=== PATIENT | male | born 1960 | race Caucasian/White ===

== ENCOUNTER 2020-04-25 09:09 | Outpatient (REF) | payer MEDICAID, SELFPAY ==
--- NOTE | 2020-04-25 10:20 | XR_ITS ---
EXAMINATION: BILATERAL HAND X-RAY CLINICAL INFORMATION: Pain COMPARISON: None TECHNIQUE: 3 views of each hand FINDINGS: Right: Bone alignment is normal. No acute fracture or dislocation is seen. There is mild arthritis at the IP joints and first MCP with joint space narrowing and small osteophytes. There is question of a subchondral cyst or erosive changes of the ulnar side of the fifth metacarpal head. There is old ununited ulnar styloid fracture versus accessory ossification center. Soft tissues are unremarkable. Left: Bone alignment is normal. No fracture or dislocation is seen. There is mild arthritis at the IP joints with joint space narrowing and osteophyte formation. Soft tissues are normal. XR/XR hand RT min 3V IMPRESSION: Mild bilateral proliferative arthritis at the IP joints and right first MCP joint. Question small erosion or cyst of the ulnar side of the fifth metacarpal head. Old ununited right ulnar styloid fracture versus accessory ossification center.
--- NOTE | 2020-04-25 10:20 | XR_ITS ---
EXAMINATION: CERVICAL SPINE X-RAY CLINICAL INFORMATION: Pain COMPARISON: Previous CT of the cervical spine August 2014 TECHNIQUE: 3 views of the cervical spine FINDINGS: Bone alignment is normal. No fracture or dislocation is seen. There is degenerative spondylosis from C3-C4 to C5-C6. There is mild disc space narrowing at C5-C6. Disc spaces are otherwise normal. Prevertebral soft tissues are normal. XR/XR lumbar spine 2-3V IMPRESSION: Mild degenerative changes. EXAMINATION: Lumbar spine x-ray CLINICAL INFORMATION: Pain COMPARISON: None. TECHNIQUE: 3 views of the lumbar spine FINDINGS: Bone alignment is normal. No fracture or dislocation is seen. There is degenerative disc disease at L5-S1. There is lower lumbar spine facet arthritis. IMPRESSION: Degenerative disc disease at L5-S1 and lower lumbar spine facet arthritis.
--- NOTE | 2020-04-25 10:20 | XR_ITS ---
EXAMINATION: CERVICAL SPINE X-RAY CLINICAL INFORMATION: Pain COMPARISON: Previous CT of the cervical spine August 2014 TECHNIQUE: 3 views of the cervical spine FINDINGS: Bone alignment is normal. No fracture or dislocation is seen. There is degenerative spondylosis from C3-C4 to C5-C6. There is mild disc space narrowing at C5-C6. Disc spaces are otherwise normal. Prevertebral soft tissues are normal. XR/XR cervical spine 2V IMPRESSION: Mild degenerative changes. EXAMINATION: Lumbar spine x-ray CLINICAL INFORMATION: Pain COMPARISON: None. TECHNIQUE: 3 views of the lumbar spine FINDINGS: Bone alignment is normal. No fracture or dislocation is seen. There is degenerative disc disease at L5-S1. There is lower lumbar spine facet arthritis. IMPRESSION: Degenerative disc disease at L5-S1 and lower lumbar spine facet arthritis.
--- NOTE | 2020-04-25 10:20 | XR_ITS ---
EXAMINATION: BILATERAL HAND X-RAY CLINICAL INFORMATION: Pain COMPARISON: None TECHNIQUE: 3 views of each hand FINDINGS: Right: Bone alignment is normal. No acute fracture or dislocation is seen. There is mild arthritis at the IP joints and first MCP with joint space narrowing and small osteophytes. There is question of a subchondral cyst or erosive changes of the ulnar side of the fifth metacarpal head. There is old ununited ulnar styloid fracture versus accessory ossification center. Soft tissues are unremarkable. Left: Bone alignment is normal. No fracture or dislocation is seen. There is mild arthritis at the IP joints with joint space narrowing and osteophyte formation. Soft tissues are normal. XR/XR hand LT min 3V IMPRESSION: Mild bilateral proliferative arthritis at the IP joints and right first MCP joint. Question small erosion or cyst of the ulnar side of the fifth metacarpal head. Old ununited right ulnar styloid fracture versus accessory ossification center.
[2020-04-25 11:37] LABS: MANUAL DIFF FLAG NO
[2020-04-25 11:43] LABS: Basophils Percent Auto 0.5 % (0-2); Eosinophils Absolute Auto 0.6 X10*3/uL (0.0-0.4); Eosinophils Percent Auto 6.5 % (0-4); Hematocrit 35.8 % (42-52); Imm Gran Abs Auto 0.04 X10*3/uL (0.00-0.03); Imm Gran Pct Auto 0.5 % (0.0-0.4); Lymphocytes Absolute Auto 1.6 X10*3/uL (1.2-4.9); Lymphocytes Percent Auto 18.9 % (20-40); Mean Corpuscular HGB Conc 33.5 g/dl (31.0-36.0); Mean Corpuscular Hemoglobin 31.3 pg (27.0-33.0); Mean Corpuscular Volume 93.2 fL (80-98); Mean Platelet Volume 10.3 fL (9.4-12.4); Monocytes Absolute Auto 0.5 X10*3/uL (0.1-1.2); Monocytes Percent Auto 5.8 % (2-11); Neutrophils Absolute Auto 5.7 X10*3/uL (2.0-8.3); Neutrophils Percent Auto 67.8 % (45-73); Platelet Count 301 X10*3/uL (160-400); Red Blood Count 3.84 X10*6/uL (4.60-5.80); Red Cell Distribution Width 12.7 % (11.0-16.0); White Blood Count 8.4 X10*3/uL (4.8-10.8)
[2020-04-25 12:32] LABS: Alanine Aminotransferase 49 U/L (0-40); Albumin Level 3.7 g/dL (3.5-5.0); Alkaline Phosphatase 161 U/L (39-117); Anion Gap 13 (12-20); Aspartate Amino Transferase 43 U/L (5-37); Bilirubin Total 0.2 mg/dL (0.0-1.0); Blood Urea Nitrogen 16 mg/dL (9-16); C Reactive Protein 0.51 mg/dL (< or = 0.50); Carbon Dioxide 26 mmol/L (22-29); Chloride 106 mmol/L (96-108); Estimated Glomerular Filt Rate > 60; Glucose Random 95 mg/dL (60-115); Potassium 4.2 mmol/l (3.3-5.1); Sodium 141 mmol/L (135-145); Total Protein 7.5 g/dL (6.5-8.0)
[2020-04-25 12:41] LABS: Thyroid Stimulating Hormone 1.66 uIU/mL (0.32-4.0)
[2020-04-25 12:55] LABS: Rheumatoid Factor 211.4 IU/mL (<15.0)
[2020-04-25 13:16] LABS: Erythrocyte Sedimentation Rate 67 MM/HR (0-15)
[2020-04-26 22:53] LABS: Cyclic Citrullinated Peptide 198 UNITS
[2020-04-27 14:37] LABS: IgA 363 mg/dL (47-310); IgG 1825 mg/dL (600-1640); IgM 114 mg/dL (50-300); PES - Abn Protein Band 1 <0.2 g/dL (NONE DETECTED); Prot Elec - Albumin 3.6 g/dL (3.8-4.8); Prot Elec - Alpha1 0.4 g/dL (0.2-0.3); Prot Elec - Alpha2 0.7 g/dL (0.5-0.9); Prot Elec - Beta 1 0.5 g/dL (0.4-0.6); Prot Elec - Beta 2 0.5 g/dL (0.2-0.5); Prot Elec - Gamma 1.7 g/dL (0.8-1.7); Prot Elec - Total Protein 7.3 g/dL (6.1-8.1)
== END 2020-04-25 09:10 | disposition home or self-care (01) ==
LOC: HO.LAB 09:09
PROVIDERS: PCP Internal Medicine; Referring Provider Internal Medicine; Visit Provider Student in an Organized Health Care Education/Training Program
DX: M79.642 Pain in left hand (principal); M54.5 Low back pain; M79.602 Pain in left arm; M79.601 Pain in right arm; M54.2 Cervicalgia; M25.50 Pain in unspecified joint
CPT/HCPCS: 36415; 72040; 72100; 73130; 80053; 82784; 84155; 84165; 84443; 85025; 85652; 86140; 86200; 86334; 86431; 99202

== ENCOUNTER 2020-05-22 09:12 | Outpatient (REF) | payer MEDICAID, SELFPAY ==
[2020-05-22 10:36] LABS: HBS Num1 2.34 mIU/mL (0-7.99); HBc Num1 0.06 S/CO (0.00-0.79); Hepatitis B Core Antibody Nonreactive (Nonreactive); Hepatitis B Surface Antigen Negative (Negative); ~HepC Num1 0.12 S/CO (0.00-0.79); ~Hepatitis B Surface Antibody NONREACTIVE (Nonreactive); ~Hepatitis C Antibody Nonreactive (Nonreactive)
[2020-05-24 08:30] LABS: ~Hepatitis A Antibody IgM Nonreactive (Nonreactive)
[2020-05-24 09:48] LABS: HBsAGNum1 0.22 S/CO (0.00-0.99)
[2020-05-25 18:26] LABS: TS Negative Control Passed; TS Panel A 0; TS Panel B 2; TS Positive Control Passed; TSpotTB Negative (SeeBelow)
== END 2020-05-22 09:13 | disposition home or self-care (01) ==
LOC: HO.LAB 09:12
PROVIDERS: Visit Provider Student in an Organized Health Care Education/Training Program
DX: M25.50 Pain in unspecified joint (principal)
CPT/HCPCS: 36415; 86481; 86704; 86706; 86709; 86803; 87340

== ENCOUNTER → 2020-05-23 09:39 | Outpatient (BNVA) | payer MEDICAID, SELFPAY | PROVIDERS: PCP Internal Medicine; Visit Provider Student in an Organized Health Care Education/Training Program | DX: M05.9 Rheumatoid arthritis with rheumatoid factor, unspecified (principal); M25.50 Pain in unspecified joint | CPT/HCPCS: 99212 ==

== ENCOUNTER 2020-05-30 10:13 | Outpatient (REF) | payer MEDICAID, SELFPAY ==
[2020-05-30 11:41] LABS: Baso%MD 0.2 %; Eos%MD 7.7 %; Hematocrit 38.4 % (42-52); Hemoglobin 12.5 g/dl (14.0-18.0); IG%MD 0.3 %; Lymph%MD 23.3 %; Mean Corpuscular HGB Conc 32.6 g/dl (31.0-36.0); Mean Corpuscular Hemoglobin 30.6 pg (27.0-33.0); Mean Corpuscular Volume 93.9 fL (80-98); Mean Platelet Volume 10.2 fL (9.4-12.4); Neut%MD 60.5 %; Platelet Count 365 X10*3/uL (160-400); Red Blood Count 4.09 X10*6/uL (4.60-5.80); Red Cell Distribution Width 12.5 % (11.0-16.0)
[2020-05-30 11:49] LABS: Alanine Aminotransferase 39 U/L (0-40); Albumin Level 3.9 g/dL (3.5-5.0); Alkaline Phosphatase 200 U/L (39-117); Anion Gap 13 (12-20); Aspartate Amino Transferase 35 U/L (5-37); Bilirubin Total 0.3 mg/dL (0.0-1.0); Blood Urea Nitrogen 15 mg/dL (9-16); Calcium 9.2 mg/dL (8.4-10.2); Carbon Dioxide 28 mmol/L (22-29); Chloride 105 mmol/L (96-108); Estimated Glomerular Filt Rate > 60; Glucose Random 90 mg/dL (60-115); Potassium 4.2 mmol/L (3.3-5.1); Sodium 142 mmol/L (135-145)
[2020-05-30 13:05] LABS: Band Neutrophils Percent 2 % (3-5); Eosinophils Absolute Manual 0.5 X10*3/UL (0.0-0.8); Eosinophils Percent Manual 5 % (0-4); Lymphocytes Absolute Manual 2.3 X10*3/uL (0.6-4.8); Lymphocytes Percent Manual 25 % (20-40); Monocytes Absolute Manual 0.6 X10*3/uL (0.0-1.2); Monocytes Percent Manual 7 % (2-11); Neutrophils Absolute Manual 5.7 X10*3/uL (2.2-7.9); Neutrophils Percent Manual 61 % (45-73)
[2020-05-30 13:06] LABS: RBC Morphology NORMAL
[2020-05-30 13:08] LABS: Platelet Estimate NORMAL (NORMAL); Platelet Morphology Comment NORMAL
[2020-05-31 14:02] LABS: Beta-2 Microglobulin, Serum 4.82 mg/L (< OR = 2.51)
[2020-05-31 19:12] LABS: Kappa Light Chain, Free Serum 98.3 mg/L (3.3-19.4); Lambda Light Chain, Free Serum 46.8 mg/L (5.7-26.3)
[2020-06-01 15:01] LABS: IgA 400 mg/dL (47-310); IgG 2210 mg/dL (600-1640); IgM 127 mg/dL (50-300)
== END 2020-05-30 10:14 | disposition home or self-care (01) ==
LOC: HO.LAB 10:13
PROVIDERS: Internal Medicine Medical Oncology; PCP Internal Medicine; Visit Provider Internal Medicine
DX: D47.2 Monoclonal gammopathy (principal); Z20.822 Contact with and (suspected) exposure to COVID-19
CPT/HCPCS: 36415; 80053; 82232; 82784; 83520; 85007; 85027; 86334; C9803; U0003; U0005

== ENCOUNTER 2020-09-06 14:51 | Outpatient (REF) | payer MEDICAID, SELFPAY ==
[2020-09-06 16:54] LABS: MANUAL DIFF FLAG NO
[2020-09-06 16:55] LABS: Basophils Percent Auto 0.4 % (0-2); Eosinophils Absolute Auto 0.7 X10*3/uL (0.0-0.4); Eosinophils Percent Auto 8.7 % (0-4); Hematocrit 36.6 % (42-52); Hemoglobin 12.1 g/dl (14.0-18.0); Imm Gran Abs Auto 0.03 X10*3/uL (0.00-0.03); Imm Gran Pct Auto 0.4 % (0.0-0.4); Lymphocytes Absolute Auto 2.8 X10*3/uL (1.2-4.9); Lymphocytes Percent Auto 37.6 % (20-40); Mean Corpuscular HGB Conc 33.1 g/dl (31.0-36.0); Mean Corpuscular Hemoglobin 30.8 pg (27.0-33.0); Mean Corpuscular Volume 93.1 fL (80-98); Mean Platelet Volume 10.4 fL (9.4-12.4); Monocytes Absolute Auto 0.8 X10*3/uL (0.1-1.2); Monocytes Percent Auto 10.5 % (2-11); Neutrophils Absolute Auto 3.2 X10*3/uL (2.0-8.3); Neutrophils Percent Auto 42.4 % (45-73); Platelet Count 309 X10*3/uL (160-400); Red Blood Count 3.93 X10*6/uL (4.60-5.80); Red Cell Distribution Width 12.8 % (11.0-16.0); White Blood Count 7.5 X10*3/uL (4.8-10.8)
[2020-09-06 17:23] LABS: Alanine Aminotransferase 44 U/L (0-40); Albumin Level 3.8 g/dL (3.5-5.0); Alkaline Phosphatase 155 U/L (39-117); Anion Gap 12 (12-20); Aspartate Amino Transferase 44 U/L (5-37); Bilirubin Total 0.3 mg/dL (0.0-1.0); Blood Urea Nitrogen 19 mg/dL (9-16); C Reactive Protein 0.36 mg/dL (< or = 0.50); Calcium 8.9 mg/dL (8.4-10.2); Carbon Dioxide 24 mmol/L (22-29); Chloride 107 mmol/L (96-108); Estimated Glomerular Filt Rate 51; Glucose Random 98 mg/dL (60-115); Potassium 4.1 mmol/L (3.3-5.1); Sodium 139 mmol/L (135-145); Total Protein 8.1 g/dL (6.5-8.0)
[2020-09-06 17:49] LABS: Erythrocyte Sedimentation Rate 81 MM/HR (0-15)
== END 2020-09-06 14:52 | disposition home or self-care (01) ==
LOC: HO.LAB 14:51
PROVIDERS: PCP Internal Medicine; Visit Provider Student in an Organized Health Care Education/Training Program
DX: M05.9 Rheumatoid arthritis with rheumatoid factor, unspecified (principal); Z79.899 Other long term (current) drug therapy
CPT/HCPCS: 36415; 80053; 85025; 85652; 86140; 99212

== ENCOUNTER → 2020-12-21 11:18 | Outpatient (BNVA) | payer MEDICAID, SELFPAY | PROVIDERS: PCP Internal Medicine; Visit Provider Nurse Practitioner Family | DX: M05.9 Rheumatoid arthritis with rheumatoid factor, unspecified (principal) | CPT/HCPCS: 99212 ==

== ENCOUNTER → 2021-01-10 08:08 | Outpatient (BNVA) | payer MEDICAID, SELFPAY | PROVIDERS: PCP Internal Medicine; Visit Provider Physician Assistant | DX: S66.911D Strain of unspecified muscle, fascia and tendon at wrist and hand level, right hand, subsequent encounter (principal) | CPT/HCPCS: 99202 ==

== ENCOUNTER 2021-01-29 14:20 | Outpatient (REF) | payer MEDICAID, SELFPAY ==
--- NOTE | ~2021-01-29 | MR_ITS ---
EXAMINATION: MR WRIST WITHOUT CONTRAST, RIGHT CLINICAL INFORMATION: Strain of other specified muscles, fascia, and tendons. Patient reports chronic right wrist pain and arthritis. COMPARISON: XR right hand 04/25/2020. TECHNIQUE: MRI of the wrist was performed using routine sequences on a high-field scanner. There is some motion artifact, particularly on the coronal PD FS sequence. FINDINGS: TRIANGULAR FIBROCARTILAGE: Intact. The ulnar styloid band attaches to a mildly displaced, old, ununited avulsion fracture of the ulnar styloid. INTRINSIC LIGAMENTS: Accounting for motion artifact, there is some degenerative signal in the scapholunate ligament but no discrete full-thickness perforation is identified. The lunotriquetral ligament is grossly intact. TENDONS/MEDIAN NERVE: Intact. ARTICULAR CARTILAGE/BONE: There is patchy mild cartilage thinning in the radioscaphoid, radiolunate, scapholunate, triscaphe, and 1st CMC joints. There is a suggestion of some cartilage thinning in the pisotriquetral joint but this joint is otherwise not well evaluated. JOINT FLUID/SOFT TISSUES: There is a small pisotriquetral joint effusion. MR/MR wrist RT wo con IMPRESSION: 1. Mildly displaced, old, ununited avulsion fracture of the ulnar styloid. 2. Mild degenerative signal in the scapholunate ligament but no discrete tear. 3. Mild arthrosis in the radioscaphoid, radiolunate, scapholunate, triscaphe, and 1st CMC joints. Suspected mild arthrosis in the pisotriquetral joint with a small effusion.
== END 2021-01-29 14:21 | disposition home or self-care (01) ==
LOC: HO.MRI 14:20
PROVIDERS: PCP Internal Medicine; Visit Provider Physician Assistant
DX: S66.819A Strain of other specified muscles, fascia and tendons at wrist and hand level, unspecified hand, initial encounter (principal)
CPT/HCPCS: 73221

== ENCOUNTER 2021-01-31 09:14 | Outpatient (REF) | payer MEDICAID, SELFPAY ==
--- NOTE | ~2021-01-31 | XR_ITS ---
EXAMINATION: XR WRIST, RIGHT XR HAND, RIGHT CLINICAL INFORMATION: Pain in hand and wrist. COMPARISON: MR right breast 01/29/2021, radiographs right hand 04/25/2020 TECHNIQUE: 3 views of the right hand and 3 views of the right wrist are obtained separately. There are total of 6 views. FINDINGS: There is normal bony mineralization. There is no acute or healing fracture or dislocation or destructive process. The ulnar variance is neutral. There is an old ununited fracture involving the ulnar styloid again seen. The carpus shows no interval joint narrowing or erosive change or chondrocalcinosis. The MCP and interphalangeal joints show no interval joint narrowing or erosive change. No periostitis. XR/XR hand RT min 3V IMPRESSION: 1. Old ununited fracture ulnar styloid. No acute fracture or dislocation. 2. No focal joint narrowing or erosive changes in the hand or wrist.
--- NOTE | ~2021-01-31 | XR_ITS ---
EXAMINATION: XR WRIST, RIGHT XR HAND, RIGHT CLINICAL INFORMATION: Pain in hand and wrist. COMPARISON: MR right breast 01/29/2021, radiographs right hand 04/25/2020 TECHNIQUE: 3 views of the right hand and 3 views of the right wrist are obtained separately. There are total of 6 views. FINDINGS: There is normal bony mineralization. There is no acute or healing fracture or dislocation or destructive process. The ulnar variance is neutral. There is an old ununited fracture involving the ulnar styloid again seen. The carpus shows no interval joint narrowing or erosive change or chondrocalcinosis. The MCP and interphalangeal joints show no interval joint narrowing or erosive change. No periostitis. XR/XR wrist RT min 3V IMPRESSION: 1. Old ununited fracture ulnar styloid. No acute fracture or dislocation. 2. No focal joint narrowing or erosive changes in the hand or wrist.
== END 2021-01-31 09:15 | disposition home or self-care (01) ==
LOC: HO.HOSX 09:14
PROVIDERS: Visit Provider Orthopaedic Surgery
DX: S66.812A Strain of other specified muscles, fascia and tendons at wrist and hand level, left hand, initial encounter (principal); M25.532 Pain in left wrist
CPT/HCPCS: 73110; 73130; 99202

== ENCOUNTER → 2021-02-21 09:49 | Outpatient (BNVA) | payer MEDICAID, SELFPAY | PROVIDERS: PCP Internal Medicine; Visit Provider Orthopaedic Surgery ==

== ENCOUNTER → 2021-03-07 09:35 | Outpatient (BNVA) | payer MEDICAID, SELFPAY | PROVIDERS: PCP Internal Medicine; Visit Provider Orthopaedic Surgery | DX: M05.9 Rheumatoid arthritis with rheumatoid factor, unspecified (principal); S66.313D Strain of extensor muscle, fascia and tendon of left middle finger at wrist and hand level, subsequent encounter; S66.31 Strain of extensor muscle, fascia and tendon of other and unspecified finger at wrist and hand level; S66.317D Strain of extensor muscle, fascia and tendon of left little finger at wrist and hand level, subsequent encounter; S66.312D Strain of extensor muscle, fascia and tendon of right middle finger at wrist and hand level, subsequent encounter; M66.28 Spontaneous rupture of extensor tendons, other site | CPT/HCPCS: 99212 ==

== ENCOUNTER 2021-03-29 08:47 | Outpatient (REF) | payer MEDICAID, SELFPAY ==
[2021-03-29 10:19] LABS: MANUAL DIFF FLAG NO
[2021-03-29 10:55] LABS: Basophils Percent Auto 0.3 % (0-2); Eosinophils Absolute Auto 0.1 X10*3/uL (0.0-0.4); Eosinophils Percent Auto 1.1 % (0-4); Hematocrit 40.6 % (42.0-52.0); Hemoglobin 13.3 g/dl (14.0-18.0); Imm Gran Abs Auto 0.02 X10*3/uL (0.00-0.03); Imm Gran Pct Auto 0.3 % (0.0-0.4); Lymphocytes Percent Auto 27.4 % (20-40); Mean Corpuscular HGB Conc 32.8 g/dl (31.0-36.0); Mean Corpuscular Volume 94.6 fL (80.0-98.0); Mean Platelet Volume 10.4 fL (9.4-12.4); Monocytes Absolute Auto 0.5 X10*3/uL (0.1-1.2); Neutrophils Absolute Auto 4.7 x10*3/uL (2.0-8.3); Neutrophils Percent Auto 63.9 % (45-73); Platelet Count 327 X10*3/uL (160-400); Red Blood Count 4.29 X10*6/uL (4.60-5.80); Red Cell Distribution Width 12.7 % (11.0-16.0); White Blood Count 7.3 X10*3/uL (4.8-10.8)
[2021-03-29 11:22] LABS: Alanine Aminotransferase 41 U/L (0-40); Albumin Level 3.9 g/dL (3.5-5.0); Alkaline Phosphatase 143 U/L (39-117); Anion Gap 12 (12-20); Aspartate Amino Transferase 46 U/L (5-37); Bilirubin Total 0.5 mg/dL (0.0-1.0); Blood Urea Nitrogen 10 mg/dL (9-16); C Reactive Protein 0.41 mg/dL (< or = 0.50); Calcium 9.7 mg/dL (8.4-10.2); Carbon Dioxide 28 mmol/L (22-29); Chloride 109 mmol/L (96-108); Estimated Glomerular Filt Rate > 60; Glucose Random 110 mg/dL (60-115); Potassium 4.2 mmol/L (3.3-5.1); Sodium 145 mmol/L (135-145); Total Protein 8.3 g/dL (6.5-8.0)
[2021-03-29 11:45] LABS: Erythrocyte Sedimentation Rate 77 MM/HR (0-15)
== END 2021-03-29 08:48 | disposition home or self-care (01) ==
LOC: HO.LAB 08:47
PROVIDERS: PCP Internal Medicine; Visit Provider Nurse Practitioner Family
DX: M05.9 Rheumatoid arthritis with rheumatoid factor, unspecified (principal)
CPT/HCPCS: 36415; 80053; 85025; 85652; 86140

== ENCOUNTER 2021-04-16 13:24 | Outpatient (REF) | payer MEDICAID, SELFPAY ==
[2021-04-20 14:22] LABS: Alkaline Phosphatase Bone 12.7 mcg/L (7.6-14.9)
== END 2021-04-16 13:25 | disposition home or self-care (01) ==
LOC: HO.LAB 13:24
PROVIDERS: PCP Internal Medicine; Visit Provider Nurse Practitioner Family
DX: M05.9 Rheumatoid arthritis with rheumatoid factor, unspecified (principal); M54.50 Low back pain, unspecified; D47.2 Monoclonal gammopathy; R74.8 Abnormal levels of other serum enzymes
CPT/HCPCS: 36415; 84075; 99212

== ENCOUNTER → 2021-04-24 12:08 | Outpatient (BNVA) | payer MEDICAID, SELFPAY | PROVIDERS: PCP Internal Medicine; Visit Provider Orthopaedic Surgery | DX: Z01.818 Encounter for other preprocedural examination (principal); S66.819A Strain of other specified muscles, fascia and tendons at wrist and hand level, unspecified hand, initial encounter; M05.9 Rheumatoid arthritis with rheumatoid factor, unspecified | CPT/HCPCS: 99212 ==

== ENCOUNTER 2021-04-26 06:22 | Day surgery (SDC) | payer MEDICAID, SELFPAY ==
[2021-04-20 16:08] VITALS: BMI 28.5
--- NOTE | 2021-04-25 08:49 | P.CONAN_ITS ---
Documented by User: Joselin Ratliff NP 04/25/21 08:55 HPI - Anesthesia Eval Consult details Narrative: 60yo M for Left Hand Tendon Transfers to Thumb, Middle, Ring and Small Finger Extensor Tendon with Transfer Radial Wrist Extensor Carpi-ulnaris +ETOH abuse Enbrel for RA held preop [facility] Active Problems Active Problems: All Active Problems (Updated 01/10/21 @ 08:55 by Sarah Al PA-C) Ruptured extensor tendon of hand or wrist (Acute) Trigger finger (Acute) Seropositive rheumatoid arthritis (Acute) Monoclonal gammopathy (Acute) Polyarthralgia (Acute) Past Medical History Medical History Alcoholism with alcohol dependence Anemia Asthma Chronic back pain GERD (gastroesophageal reflux disease) Peptic ulcer Trigger finger Surgical History Surgical History No pertinent past surgical history Social History Social History Alcohol intake: former Patient Tobacco Use Status: Former Tobacco user Quit Date: 1999 Tobacco use type: Cigarette Cigarettes Per Day: 4 Years Smoked: 15 Use of substances other than those prescribed or required for medical reasons: No Are you DNR?: No Advance Directives: No Advance Directives Information Provided: Yes Advance Directives on File: No Current occupation: Right handed Meds Allergies Allergy/AdvReac Type Severity Reaction Status Date / Time No Known Allergies Allergy Verified 04/24/21 12:17 [No Known Allergies*] Home Medications Medication Instructions Recorded Confirmed Last Taken Type ascorbate calcium (vitamin C) 500 500 mg PO DAILY 04/25/20 04/20/21 Unknown History mg tablet atorvastatin 20 mg tablet 20 mg PO BEDTIME 04/25/20 04/20/21 Unknown History clonidine HCl 0.2 mg tablet 0.2 mg PO BEDTIME 04/25/20 04/20/21 Unknown History escitalopram oxalate 20 mg tablet 20 mg PO DAILY 04/25/20 04/20/21 Unknown History ferrous sulfate 325 mg (65 mg 325 mg PO DAILY 04/25/20 04/20/21 Unknown History iron) tablet gabapentin 300 mg capsule 300 mg PO BID 04/25/20 04/20/21 Unknown History multivitamin 1 tab PO DAILY 04/25/20 04/20/21 Unknown History naltrexone 50 mg tablet 50 mg PO DAILY 04/25/20 04/20/21 Unknown History omeprazole 20 mg tablet,delayed 20 mg PO DAILY 04/25/20 04/20/21 Unknown History release quetiapine 25 mg tablet 25 mg PO DAILY 04/25/20 04/20/21 Unknown History Exam Exam Date and Time: April 25, 2021 0849 Height,Weight and Vital Signs: Height 5 ft 4 in Weight 75.296 kg Pertinent Lab Results Pertinent Lab Results: Laboratory Tests 03/29/21 03/29/21 03/29/21 10:17 10:17 10:17 WBC 7.3 Hgb 13.3 L Hct 40.6 L Plt Count 327 ESR 77 H Sodium 145 Potassium 4.2 Chloride 109 H Carbon Dioxide 28 BUN 10 Creatinine 1.11 Calcium 9.7 D Total Bilirubin 0.5 AST 46 H ALT 41 H Alkaline Phosphatase 143 H C-Reactive Protein 0.41 Total Protein 8.3 H Albumin 3.9 Assessment and Plan Assessment Anesthesia Assessment: Chart Reviewed Documented by User: Jase Maki MD 04/26/21 08:18 [facility] Past Medical History Medical History Alcoholism with alcohol dependence Anemia Asthma Chronic back pain GERD (gastroesophageal reflux disease) Peptic ulcer Trigger finger Family History Family history of problems with anesthesia: No Surgical History Surgical History No pertinent past surgical history History of Problems with Anesthesia: No Social History Social History Alcohol intake: former Patient Tobacco Use Status: Former Tobacco user Quit Date: 1999 Tobacco use type: Cigarette Cigarettes Per Day: 4 Years Smoked: 15 Use of substances other than those prescribed or required for medical reasons: No Are you DNR?: No Advance Directives: No Advance Directives Information Provided: Yes Advance Directives on File: No Current occupation: Right handed Meds Allergies Allergy/AdvReac Type Severity Reaction Status Date / Time No Known Allergies Allergy Verified 04/24/21 12:17 [No Known Allergies*] Home Medications Medication Instructions Recorded Confirmed Last Taken Type ascorbate calcium (vitamin C) 500 500 mg PO DAILY 04/25/20 04/20/21 Unknown History mg tablet atorvastatin 20 mg tablet 20 mg PO BEDTIME 04/25/20 04/20/21 Unknown History clonidine HCl 0.2 mg tablet 0.2 mg PO BEDTIME 04/25/20 04/20/21 Unknown History escitalopram oxalate 20 mg tablet 20 mg PO DAILY 04/25/20 04/20/21 Unknown History ferrous sulfate 325 mg (65 mg 325 mg PO DAILY 04/25/20 04/20/21 Unknown History iron) tablet gabapentin 300 mg capsule 300 mg PO BID 04/25/20 04/20/21 Unknown History multivitamin 1 tab PO DAILY 04/25/20 04/20/21 Unknown History naltrexone 50 mg tablet 50 mg PO DAILY 04/25/20 04/20/21 Unknown History omeprazole 20 mg tablet,delayed 20 mg PO DAILY 04/25/20 04/20/21 Unknown History release quetiapine 25 mg tablet 25 mg PO DAILY 04/25/20 04/20/21 Unknown History Exam Airway Mallampati Class: III TM Dist: >3cm Neck ROM: Full Loose/Missing/Broken Teeth: Yes Assessment and Plan Assessment Anesthesia Assessment: Anesthesia Plan Discussed Final Anesthetic Review Family History of Problems with Anesthesia: No History of Problems with Anesthesia: No NPO: Yes ASA Class: III Final Preanesthetic Review: No Changes in Pt Med Stat, Meds/Allgs Chart Reviewed, Consent Obtained/Reviewed and Anes Risks/Benef Reviewed Patient Risk: Low Procedure Risk: Low Anesthetic Plan Anesthetic Plan: GA and Regional Block Disposition: Standard PACU
[2021-04-26] VITALS (9 sets, daily range): BP systolic 99–126; BP diastolic 54–64; PULSE 68–103; RESP 16–20; TEMP 36.1–36.6; O2SAT 93–98
[2021-04-26] MEDS: Lactated Ringers 1,000 ML 100 ML IVCONT (06:47)
--- NOTE | 2021-04-26 07:40 | PC.NURSE ---
regional block initiated by dr conroy at 0737 pt verbalized understanding timeout completed
[2021-04-26] MEDS: ondansetron HCL 4 MG/2 ML VIAL IVPUSH (09:53)
--- NOTE | 2021-04-26 10:03 | MHC.SHP ---
Pre-Procedural Eval Section A Date of Service: 04/26/21 The patient is an INPATIENT: No Changes since office visit: No Cold of Flu in the past 2 weeks, No New Medical Problems, No Changes in Medication and No Patient answered all questions The History & Physical has been completed within 30 days and I have reviewed it.: Yes Section B Chief Complaint: Strain of other Specified Muscles Allergies: Allergies Allergy/AdvReac Type Severity Reaction Status Date / Time No Known Allergies Allergy Verified 04/24/21 12:17 [No Known Allergies*] Plan I have reviewed the history and physical and performed a pertinent physical examination on my patient. No changes have occurred unless specified.
--- NOTE | 2021-04-26 10:03 | W.PM.OPN ---
Operative Note Operative Note Date of Service: 04/26/21 Narrative: Operative Note Narrative: Preop diagnosis: 1. Rheumatoid arthritis related ruptures of the EDC tendons to the middle ring and small fingers, the EDQ tendon and the EPL tendon Postop diagnosis: 1. No extensor tendon ruptures found 2. Possible neuromuscular disease Procedure: 1. Exploration of extensor tendons to the left hand and in the left forearm 2. Muscle biopsy of the left extensor pollicis longus muscle belly 3. Muscle biopsy of the left extensor digitorum communis muscle belly in the proximal forearm Surgeon: Dianne Palacios MD Anesthesia: General plus regional block Findings: All extensor tendons were noted to be intact from the forearm through the extensor retinaculum to the digits. They EIP muscle belly was noted to be a healthy appearing darker pink Appearing color. However, the EPL muscle belly was noted to be very pale and less contractile. evaluation of the EDC muscle bellies more proximally in the forearm showed these muscle bellies also to be unusually pale and not healthy appearing Implants: none Tourniquet time: 18 minutes minutes EBL: 5.0 ml Specimen: sample of EPL muscle belly and EDC muscle belly each sent down for neuromuscular evaluation by pathology. Drains: None Complications: None Disposition: Brought to the recovery room in stable condition Plan: Follow-up in 10-14 days for wound check, suture removal and to check pathology Indications: The patient is a 60 year old man with inability to actively extend bilateral thumbs and middle ring and small fingers With a recent diagnosis of rheumatoid arthritis. . The risks and benefits of operative treatment, including but not limited to risk of damage to blood vessels, nerves, tendons, infection, recurrence, persistent pain or numbness, incomplete resolution of preoperative symptoms, or need for further surgery were discussed with the patient and they wished to proceed with surgery. Procedure: Once consent was obtained patient was brought back to the operating suite and placed in the operating table in a supine position. A regional block was performed by the anesthesia team. Perioperative antibiotics and anesthesia was administered by the anesthesia team. A tourniquet was applied to the proximal aspect of the Left upper extremity and the limb was prepped and draped in a standard surgical fashion. The limb was elevated exsanguinated with Esmarch bandage and the tourniquet inflated to 250 mm of mercury for a total tourniquet time of 18 minutes. I 1st made a 1.5 cm gently curved incision just proximal to the left 2nd metacarpal head. The incision was made through the skin to the subcutaneous tissues. I dissected down to the level of the extensor tendons to the index finger. Both were present. I then made a longitudinal incision centered over the dorsal aspect of the right wrist extending from the 3rd CMC joint proximally to about 8 cm proximal to the wrist joint. The incision was made through the skin to the subcutaneous tissues using a 15. Blade. I carefully dissected down to the level of the extensor tendons and the extensor retinaculum. All extensor tendons were noted to be intact including all EDC tendons, the EIP tendon the EDQ tendon and the EPL tendon. I visualized the muscle bellies of both the EIP and the EPL tendons. Their difference was striking. the function in EIP muscle belly was a normal dark pink color. The EPL muscle belly, in the nonfunctioning tendon was pale and less contractile. I then made a 3 cm longitudinal incision directly over the EDC muscle belly and the proximal forearm. Incision was made through the skin to the subcutaneous tissues using a 15. Blade. I then dissected down to the forearm fascia and made a longitudinal incision in the forearm fascia using tenotomy scissors. I then was able to evaluate the muscle tissue to the EDC. Again I found this muscle tissue to be pale in appearance. At this point I spoke to our pathologist on the phone about sending specimen of muscle tissue for evaluation of neuromuscular disease. I removed an approximately 1.5 cm narrow length of muscle tissue from the EPL muscle belly. It measured only perhaps 2-3 mm in width. This was then placed on Telfa with saline to be sent for neuromuscular evaluation. I then took a specimen for biopsy of the EDC muscle measuring approximately 2 cm in length by perhaps 5 mm in width. This was again placed on a piece of Telfa with saline and sent for neuromuscular staining. At this point the tourniquet was deflated and hemostasis obtained with a brief period of local pressure and bipolar electrocautery. The wounds were copiously irrigated with normal saline. The subcutaneous layer was closed with 4-0 Vicryl suture, and the skin edges were reapproximated with 5-0 nylon suture. The wounds were infiltrated with some 1% lidocaine with epinephrine for postop pain control and a sterile dressing was applied. The patient appears to have tolerated the procedure well and with no complications. All digits were well vascularized conclusion of the case.
== END 2021-04-26 10:47 | disposition home or self-care (01) ==
PROVIDERS: PCP Internal Medicine; Visit Provider Orthopaedic Surgery
PROC: (CPT 20205; principal; 2021-04-26 07:30)
DX: M05.9 Rheumatoid arthritis with rheumatoid factor, unspecified (principal); M25.532 Pain in left wrist; M25.531 Pain in right wrist; G89.29 Other chronic pain; M54.9 Dorsalgia, unspecified; M25.432 Effusion, left wrist; M25.431 Effusion, right wrist; Z79.899 Other long term (current) drug therapy; M25.541 Pain in joints of right hand; D64.9 Anemia, unspecified; J45.909 Unspecified asthma, uncomplicated; K21.9 Gastro-esophageal reflux disease without esophagitis; K27.9 Peptic ulcer, site unspecified, unspecified as acute or chronic, without hemorrhage or perforation; F10.20 Alcohol dependence, uncomplicated; Z87.891 Personal history of nicotine dependence
CPT/HCPCS: 20205 ×2; 88300; 88305; 88313; 88319; 88348; J0690; J1100; J2250; J2405; J3010

== ENCOUNTER → 2021-05-09 12:02 | Outpatient (BNVA) | payer MEDICAID, SELFPAY | PROVIDERS: Visit Provider Orthopaedic Surgery | DX: M62.81 Muscle weakness (generalized) (principal) | CPT/HCPCS: 99212 ==

== ENCOUNTER 2021-07-11 09:19 | Outpatient (REF) | payer MEDICAID, SELFPAY ==
--- NOTE | 2021-07-11 09:22 | EMG_ITS ---
This is a 60-year-old man with bilateral upper extremity numbness with the left being slightly worse than the right. PHYSICAL EXAMINATION: He is alert and oriented with normal intellectual functions. Cranial nerves II through XII are normal. Muscle tone and strength are normal. No Tinel or Phalen sign. IMPRESSION: Rule out carpal tunnel syndrome. Nerve conduction EMG study: This study is suggestive of an early carpal tunnel syndrome on the left. There is mild delay in the right ulnar nerve across the elbow suggesting mild ulnar nerve entrapment as well. Normal EMG of the left C5-T1 innervated muscles. MD JENNIE Chen/GIANFRANCO / [id number]
== END 2021-07-11 09:20 | disposition home or self-care (01) ==
LOC: HO.NEURO 09:19
PROVIDERS: PCP Internal Medicine; Visit Provider Orthopaedic Surgery
DX: M62.81 Muscle weakness (generalized) (principal); R20.0 Anesthesia of skin
CPT/HCPCS: 95885; 95913

== ENCOUNTER → 2021-07-31 12:57 | Outpatient (BNVA) | payer MEDICAID, SELFPAY | PROVIDERS: PCP Internal Medicine; Visit Provider Nurse Practitioner Family | DX: M54.50 Low back pain, unspecified (principal); M05.9 Rheumatoid arthritis with rheumatoid factor, unspecified; D47.2 Monoclonal gammopathy | CPT/HCPCS: 99212 ==

== ENCOUNTER 2021-09-26 12:08 | Outpatient (REF) | payer MEDICAID, SELFPAY ==
[2021-09-26 12:31] LABS: MANUAL DIFF FLAG NO
[2021-09-26 13:00] LABS: Basophils Percent Auto 0.5 % (0-2); Eosinophils Absolute Auto 0.1 X10*3/uL (0.0-0.4); Eosinophils Percent Auto 1.7 % (0-4); Hematocrit 36.9 % (42.0-52.0); Hemoglobin 12.5 g/dl (14.0-18.0); Imm Gran Abs Auto 0.02 X10*3/uL (0.00-0.03); Imm Gran Pct Auto 0.3 % (0.0-0.4); Lymphocytes Absolute Auto 2.6 X10*3/uL (1.2-4.9); Mean Corpuscular HGB Conc 33.9 g/dl (31.0-36.0); Mean Corpuscular Hemoglobin 31.5 pg (27.0-33.0); Mean Corpuscular Volume 92.9 fL (80.0-98.0); Mean Platelet Volume 10.6 fL (9.4-12.4); Monocytes Absolute Auto 0.6 X10*3/uL (0.1-1.2); Monocytes Percent Auto 8.8 % (2-11); Neutrophils Absolute Auto 3.3 x10*3/uL (2.0-8.3); Neutrophils Percent Auto 49.7 % (45-73); Platelet Count 283 X10*3/uL (160-400); Red Blood Count 3.97 X10*6/uL (4.60-5.80); Red Cell Distribution Width 12.8 % (11.0-16.0); White Blood Count 6.6 X10*3/uL (4.8-10.8)
[2021-09-26 13:33] LABS: Alanine Aminotransferase 38 U/L (0-40); Albumin Level 3.9 g/dL (3.5-5.0); Alkaline Phosphatase 162 U/L (39-117); Anion Gap 9 (12-20); Aspartate Amino Transferase 36 U/L (5-37); Bilirubin Total 0.3 mg/dL (0.0-1.0); Blood Urea Nitrogen 20 mg/dL (9-16); C Reactive Protein 0.19 mg/dL (< or = 0.50); Calcium 9.7 mg/dL (8.4-10.2); Carbon Dioxide 30 mmol/L (22-29); Chloride 105 mmol/L (96-108); Estimated Glomerular Filt Rate > 60; Glucose Random 104 mg/dL (60-115); Potassium 4.8 mmol/L (3.3-5.1); Sodium 139 mmol/L (135-145); Total Protein 8.2 g/dL (6.5-8.0)
[2021-09-26 13:48] LABS: Erythrocyte Sedimentation Rate 75 MM/HR (0-15)
== END 2021-09-26 12:09 | disposition home or self-care (01) ==
LOC: HO.LAB 12:08
PROVIDERS: Nurse Practitioner Family; PCP Internal Medicine; Visit Provider Psychiatry & Neurology Neurology
DX: G72.9 Myopathy, unspecified (principal); M05.9 Rheumatoid arthritis with rheumatoid factor, unspecified
CPT/HCPCS: 36415; 80053; 82088; 82550; 85025; 85652; 86140

== ENCOUNTER → 2021-11-19 08:34 | Outpatient (BNVA) | payer MEDICAID, SELFPAY | PROVIDERS: PCP Internal Medicine; Visit Provider Nurse Practitioner Family | DX: M05.9 Rheumatoid arthritis with rheumatoid factor, unspecified (principal); M60.9 Myositis, unspecified; R21 Rash and other nonspecific skin eruption; D47.2 Monoclonal gammopathy; M54.50 Low back pain, unspecified | CPT/HCPCS: 99212 ==

== ENCOUNTER 2022-04-17 15:16 | Outpatient (REF) | payer MEDICAID, SELFPAY ==
[2022-04-17 15:30] LABS: MANUAL DIFF FLAG NO
[2022-04-17 16:10] LABS: Basophils Percent Auto 0.3 % (0-2); Eosinophils Absolute Auto 0.1 X10*3/uL (0.0-0.4); Eosinophils Percent Auto 1.1 % (0-4); Hematocrit 34.8 % (42.0-52.0); Hemoglobin 11.9 g/dl (14.0-18.0); Imm Gran Abs Auto 0.02 X10*3/uL (0.00-0.03); Imm Gran Pct Auto 0.2 % (0.0-0.4); Lymphocytes Absolute Auto 2.4 X10*3/uL (1.2-4.9); Lymphocytes Percent Auto 27.3 % (20-40); Mean Corpuscular HGB Conc 34.2 g/dl (31.0-36.0); Mean Corpuscular Hemoglobin 31.6 pg (27.0-33.0); Mean Corpuscular Volume 92.6 fL (80.0-98.0); Mean Platelet Volume 10.2 fL (9.4-12.4); Monocytes Absolute Auto 0.7 X10*3/uL (0.1-1.2); Neutrophils Absolute Auto 5.5 x10*3/uL (2.0-8.3); Neutrophils Percent Auto 63.1 % (45-73); Platelet Count 276 X10*3/uL (160-400); Red Blood Count 3.76 X10*6/uL (4.60-5.80); White Blood Count 8.7 X10*3/uL (4.8-10.8)
[2022-04-17 16:50] LABS: Erythrocyte Sedimentation Rate 75 MM/HR (0-15)
[2022-04-22 23:32] LABS: Aldolase 6.3 U/L (<=8.1)
[2022-04-23 10:44] LABS: IgA 532 mg/dL (70-320); IgG 2104 mg/dL (600-1540); IgM 207 mg/dL (50-300)
== END 2022-04-17 15:17 | disposition home or self-care (01) ==
LOC: HO.LAB 15:16
PROVIDERS: PCP Internal Medicine; Visit Provider Psychiatry & Neurology Neurology
DX: G72.9 Myopathy, unspecified (principal)
CPT/HCPCS: 36415; 82085; 82550; 82784; 85025; 85652; 86334

== ENCOUNTER → 2022-05-22 10:11 | Outpatient (BNVA) | payer MEDICAID, SELFPAY | PROVIDERS: PCP Internal Medicine; Visit Provider Nurse Practitioner Family | DX: M05.70 Rheumatoid arthritis with rheumatoid factor of unspecified site without organ or systems involvement (principal); M60.9 Myositis, unspecified; M54.50 Low back pain, unspecified; D47.2 Monoclonal gammopathy | CPT/HCPCS: 36415; 80053; 86140; 99212 ==

== ENCOUNTER 2022-05-22 11:39 | Outpatient (REF) | payer MEDICAID, SELFPAY ==
[2022-05-22 13:58] LABS: Alanine Aminotransferase 27 U/L (0-40); Alkaline Phosphatase 178 U/L (39-117); Anion Gap 15 (12-20); Aspartate Amino Transferase 25 U/L (5-37); Bilirubin Total 0.4 mg/dL (0.0-1.0); Blood Urea Nitrogen 13 mg/dL (9-16); Calcium 9.4 mg/dL (8.4-10.2); Carbon Dioxide 25 mmol/L (22-29); Chloride 105 mmol/L (96-108); Estimated Glomerular Filt Rate > 60; Glucose Random 116 mg/dL (60-115); Potassium 4.3 mmol/L (3.3-5.1); Sodium 141 mmol/L (135-145); Total Protein 7.9 g/dL (6.5-8.0)
== END 2022-05-22 11:40 | disposition home or self-care (01) ==
LOC: HO.10HDL 11:39
PROVIDERS: Visit Provider Nurse Practitioner Family
DX: M05.9 Rheumatoid arthritis with rheumatoid factor, unspecified (principal); M60.9 Myositis, unspecified; R21 Rash and other nonspecific skin eruption; D47.2 Monoclonal gammopathy; M54.50 Low back pain, unspecified
CPT/HCPCS: 36415; 80053; 86140

== ENCOUNTER 2023-03-07 11:02 | Outpatient (REF) | payer MEDICAID, SELFPAY ==
[2023-03-07 14:39] LABS: Cholesterol 196 mg/dL (<200); HDL Cholesterol 37 mg/dL (>40); LDL Cholesterol Calculated 117 mg/dL (<100); Triglycerides 214 mg/dL (<150)
== END 2023-03-07 11:03 | disposition home or self-care (01) ==
LOC: HO.HHCL 11:02
PROVIDERS: Visit Provider Internal Medicine
DX: Z00.00 Encounter for general adult medical examination without abnormal findings (principal)
CPT/HCPCS: 36415; 80061

== ENCOUNTER 2023-06-30 10:22 | Outpatient (REF) | payer MEDICAID, SELFPAY ==
[2023-06-30 11:54] LABS: MANUAL DIFF FLAG NO
[2023-06-30 12:04] LABS: Basophils Percent Auto 0.4 % (0-2); Eosinophils Absolute Auto 0.1 X10*3/uL (0.0-0.4); Eosinophils Percent Auto 0.8 % (0-4); Hematocrit 37.9 % (42.0-52.0); Hemoglobin 12.7 g/dl (14.0-18.0); Imm Gran Abs Auto 0.04 X10*3/uL (0.00-0.03); Imm Gran Pct Auto 0.4 % (0.0-0.4); Lymphocytes Absolute Auto 1.3 X10*3/uL (1.2-4.9); Lymphocytes Percent Auto 13.9 % (20-40); Mean Corpuscular HGB Conc 33.5 g/dl (31.0-36.0); Mean Corpuscular Hemoglobin 31.5 pg (27.0-33.0); Mean Platelet Volume 11.1 fL (9.4-12.4); Monocytes Absolute Auto 0.6 X10*3/uL (0.1-1.2); Neutrophils Absolute Auto 7.2 x10*3/uL (2.0-8.3); Neutrophils Percent Auto 78.5 % (45-73); Platelet Count 292 X10*3/uL (160-400); Red Blood Count 4.03 X10*6/uL (4.60-5.80); Red Cell Distribution Width 12.2 % (11.0-16.0); White Blood Count 9.2 X10*3/uL (4.8-10.8)
[2023-06-30 13:12] LABS: Alanine Aminotransferase 31 U/L (0-40); Albumin Level 3.9 g/dL (3.5-5.0); Alkaline Phosphatase 168 U/L (39-117); Anion Gap 13 (12-20); Aspartate Amino Transferase 29 U/L (5-37); Bilirubin Direct 0.2 mg/dL (0.0-0.5); Bilirubin Total 0.3 mg/dL (0.0-1.0); Blood Urea Nitrogen 10 mg/dL (9-16); Calcium 9.6 mg/dL (8.4-10.2); Carbon Dioxide 26 mmol/L (22-29); Chloride 105 mmol/L (96-108); Cholesterol 165 mg/dL (<200); Estimated Glomerular Filt Rate > 60; Glucose Random 139 mg/dL (60-115); HDL Cholesterol 34 mg/dL (>40); Iron 120 mcg/dL (45-160); LDL Cholesterol Calculated 89 mg/dL (<100); Percent Iron Saturation 58 % (15-50); Potassium 4.1 mmol/L (3.3-5.1); Sodium 140 mmol/L (135-145); Total Iron Binding Capacity 207 mcg/dL (228-428); Total Protein 8.3 g/dL (6.5-8.0); Triglycerides 212 mg/dL (<150); Unsaturated Iron Binding 87 ug/dL
[2023-07-01 04:49] LABS: HIV AB/AG Nonreactive (Nonreactive); HIV Num 1 0.06 S/CO (0.00-0.99); ~HepC Num1 0.34 S/CO (0.00-0.79); ~Hepatitis C Antibody Nonreactive (Nonreactive)
== END 2023-06-30 10:23 | disposition home or self-care (01) ==
LOC: HO.HHCL 10:22
PROVIDERS: Visit Provider Internal Medicine
DX: M05.79 Rheumatoid arthritis with rheumatoid factor of multiple sites without organ or systems involvement (principal); D64.9 Anemia, unspecified
CPT/HCPCS: 36415; 80048; 80061; 80076; 83540; 85025; 86803; 87389

== ENCOUNTER → 2023-12-03 14:54 | Outpatient (RCR) | payer MEDICAID, SELFPAY ==
[2020-05-30 09:17] VITALS: BP 127/74; PULSE 79; RESP 12; TEMP 37.2; O2SAT 99; BMI 28.2
--- NOTE | 2020-05-30 09:24 | PM.HEMONCCN ---
Subjective - Subjective Chief complaint: Consult for MGUS. Anemia. Patient: new to practice Consult date: 05/30/20 Requesting Physician: Everardo. Primary Care Provider: Patti Ritter MD Medical Summary: DIAGNOSIS: 1. MGUS. 2. ANEMIA. HPI - Consult Narrative Reason for consult: Consult for: 1. MGUS 2. Anemia. Narrative: Aries Billings is a pleasant 59 year old gentleman, who has been referred by Dr. Mcgee for MGUS. He has seropositive rheumatoid arthritis. As part of evaluation an SIEP was done. This revealed: Ig. IgA: 363. IgM: 114. A faint IgG lambda monoclonal band was seen. ROS: He denies easy fatigability. No fever nor chills. Appetite is good. He has gained weight. He complains of generalized body aches. He has pain in his arms and legs. No headache no dizziness. No chest pain or trouble breathing. He had abdominal pain the other day. It is gone now. No nausea vomiting no diarrhea. No gross blood in the stools. No urinary complaints. No focal weakness. He does feel rather depressed. Previous history: Last note from Dr. Mcgee: Patient has a history of rheumatoid arthritis. Seropositive rheumatoid arthritis (RF++ CCP++). RA: 211.Cycl Citrul Peptide Ig. X-rays of hands with possible erosions. Because he has a history of alcoholism and does have some increase in his LFTs as well as possible erosion on x-ray, will advance therapy directly to a biologic with TNF inhibitor. I am still awaiting the results of hepatitis a and TB testing. Once these tests have returned negative, I will order Enbrel for patient. He will do blood work in 2 months after starting Enbrel. Side effects of Enbrel were discussed with the patient in detail including increased risk of infection, demyelinating disease, reactivation of latent TB, possible increased risk of solid and skin tumors. Patient fully aware. Advised patient to seek medical care Stanley sudhakar if patient has an infection and advised patient to stop the medication until the infection is resolved. Family history: Denies any blood disease nor cancer in the family. Social history. He is on disability. He is not . He has 4 children. He used to smoke a pack-a-day quit more than 20 years ago. He used to drink heavily quit 3 years ago. Review of Systems - Constitutional Reports system reviewed and no additional complaints, except as documented, Reports weight gain - Eyes Reports system reviewed and no additional complaints, except as documented - ENT Reports system reviewed and no additional complaints, except as documented - Cardiovascular Reports system reviewed and no additional complaints, except as documented - Respiratory Reports no additional respiratory complaints - Gastrointestinal Reports system reviewed and no additional complaints, except as documented, Reports abdominal pain - Genitourinary Genitourinary: Reports no additional male genitourinary complaints - Musculoskeletal Reports system reviewed and no additional complaints, except as documented, Reports body aches, Reports joint pain - Integumentary/Breasts Skin/Breast: Reports no additional skin complaints - Neurologic Reports system reviewed and no additional complaints, except as documented - Psychiatric Reports system reviewed and no additional complaints, except as documented - Endocrine Reports no additional endocrine complaints - Hematologic/Lymphatic Reports system reviewed and no additional complaints, except as documented - Allergic/Immunologic Reports system reviewed and no additional complaints, except as documented Oncology Screenings - ECOG Performance Status ECOG Performance Status: 0 [facility] Medical History: Medical History (Last Reviewed 05/23/20 @ 10:05 by Yakov Mcgee MD) Alcoholism with alcohol dependence Anemia Asthma Chronic back pain GERD (gastroesophageal reflux disease) Peptic ulcer Trigger finger Functional capacity: independent ambulation Patient : No Surgical History: Surgical History (Last Reviewed 05/23/20 @ 09:46 by Nerissa Sheets CMA) No pertinent past surgical history Social History: Social History (Last Reviewed 05/23/20 @ 09:46 by Nerissa Sheets CMA) Alcohol History: Alcohol intake: former Home Medications and Allergies Home Medications Medication Instructions Recorded Confirmed Type ascorbate calcium (vitamin C) 500 500 mg PO DAILY 04/25/20 05/30/20 History mg tablet atorvastatin 20 mg tablet 20 mg PO BEDTIME 04/25/20 05/30/20 History clonidine HCl 0.2 mg tablet 0.2 mg PO BEDTIME 04/25/20 05/30/20 History escitalopram oxalate 20 mg tablet 20 mg PO DAILY 04/25/20 05/30/20 History ferrous sulfate 325 mg (65 mg 325 mg PO DAILY 04/25/20 05/30/20 History iron) tablet gabapentin 300 mg capsule 300 mg PO BID 04/25/20 05/30/20 History multivitamin 1 tab PO DAILY 04/25/20 05/30/20 History naltrexone 50 mg tablet 50 mg PO DAILY 04/25/20 05/30/20 History omeprazole 20 mg tablet,delayed 20 mg PO DAILY 04/25/20 05/30/20 History release quetiapine 25 mg tablet 25 mg PO DAILY 04/25/20 05/30/20 History Allergies Allergy/AdvReac Type Severity Reaction Status Date / Time No Known Allergies Allergy Verified 05/23/20 09:45 [No Known Allergies*] Physical Exam Vital signs: Vital Signs Temp 98.9 F 05/30/20 09:17 Pulse 79 05/30/20 09:17 Resp 12 05/30/20 09:17 BP 127/74 05/30/20 09:17 Pulse Ox 99 05/30/20 09:17 Intake & Output 05/29/20 05/30/20 05/30/20 18:59 06:59 18:59 Other: Weight 74.6 kg Weight in Grams 99209 Weight 74.6 kg - Constitutional Present: no acute distress, mild distress - Routine HEENT Exam Head: Present: normal inspection ENT: Present: mucous membranes moist - Routine Neck Exam Present: supple - Routine Respiratory Exam Present: CTAB - Routine Cardiovascular Exam Cardiovascular: Present: RRR, S1, S2 - Routine Abdominal Exam Present: normal bowel sounds, nontender - Routine Rectal Exam Patient deferred: digital exam - Routine Skin Exam Present: intact - Routine Neurological Exam Present: alert, oriented X3 - Detailed Neurological Exam: Coma Scale Eye Opening: Spontaneous (4) Verbal Response: Oriented (5) Motor Response: Obeys commands (6) Lee Coma Scale Total: 15 - Routine Psychiatric Exam Present: normal affect Assessment and Plan (1) Monoclonal gammopathy Status: Acute CBC: WBC 9, HGB 12.5, HCT 38.4, MCV 93.9, PLT 365. CMP: Lytes: WNL, BUN 15, [employer]ER 1.03, GLU 90. Romel 9.2, Alb 3.9. LFTs:<0.2/200/35/39. This is a pleasant 59-year-old gentleman with a recent diagnosis of seropositive rheumatoid arthritis. He is waiting for insurance approval to get started on Embrel. As part of the evaluation he was noted to have monoclonal gammopathy. IgG lambda band. Most likely he has MGUS. DIFFERENTIAL DIAGNOSIS: 2. Multiple myeloma: He does not fulfill the criteria. He does have mild anemia but that is likely related to ACD from his underlying rheumatological disorder. No kidney disease. No hypercalcemia. 3. Amyloidosis: This is a possibility given the lambda band. 4. A lymphoproliferative disorder: Lymphoma. PLAN: At this point the plan is to proceed with further evaluation. I will repeat SIEP: No monoclonal spike. Will check serum free light chain ratio: 2.10. Check a beta 2 microglobulin level for prognosis. Will check LDH: Normal. I will simply monitor him for now. If the levels go up significantly will proceed with further evaluation including a bone marrow exam and abdominal fat pad biopsy. He will return in 6 months for a follow-up visit. Thank you, CC: Dr. Mcgee. Dr. Ritter.
--- NOTE | 2020-05-30 10:46 | MHC.HEMONCMA ---
Patient present for monoclonal gammopathy. History reviewed and an machine greaser was used. Patient stated that he was exposed to COVID but wasn't feeling any symptoms. Patient was brought to old ED for covid testing and was advised that after getting negative results to have labs drawn.
== END | disposition home or self-care (01) ==
LOC: HO.ONC 05-30 09:12
PROVIDERS: PCP Internal Medicine; Referring Provider Internal Medicine; Visit Provider Internal Medicine Medical Oncology
DX: D47.2 Monoclonal gammopathy (principal); D64.9 Anemia, unspecified; M05.9 Rheumatoid arthritis with rheumatoid factor, unspecified
CPT/HCPCS: 99204

== ENCOUNTER 2024-10-25 11:12 | Outpatient (REF) | payer MEDICAID, SELFPAY ==
--- OUTSIDE RECORDS SUMMARY | 2024-10-25 12:22 | XMS_ITS | Encounter Summary ---
Author Organization [email or web address] Address [address] [facility] [address] [place] [address] Care Team Providers Care Pulper Name Role Phone Patti Moreno MD Primary Care Provide r Shonna Bautista RN Unavailable [phone] Reason for Visit * Reason Onset Date Comments Immunizations 10/20/2024 Encounter Details Date Type Department Care Team ([facility] st Contact Info) Description 10/20/2024 Telephone [facility] [address] [place] [address] Patti Moreno MD [address] [place], [place] [id number] Immunizations Social History Tobacco Use Types Packs/Day Years Used Date Smoking Tobacco: Never Passive Smoke Exposure: Never Smokeless Tobacco: Never Alcohol Answer Date Recorded How often do you have a drink containing alcohol ? 2 10/15/2024 How many drinks containing a lcohol do you have on a typical day when you are drinking? 2 10/15/2024 How often do you have six or more drinks on one occasion? 2 10/15/2024 Depression Answer Date Recorded Patient Health Questionnaire-9 Score 7 10/15/2024 Patient Health Questionnaire-9 Score 7 10/15/2024 Last PHQ-9: Questionnaire Data Not on file 0 10/15/2024 Housing Stability Answer Date Recorded What is your housing situation today? I have wisam siddiqi 10/15/[address] you li ve. Do you have problems with any of the following? None of the above 10/15/2024 Food Insecurity Answer Date Recorded Within the past 12 months, y ou worried that your food would run out before you got money to buy more: Never True 10/15/2024 Within the past 12 months,th e food you bought just didn't last and you didn't have enough money to get more: Never True 02/2025 Transportation Answer Date Recorded In the past 12 months, has l ack of transportation kept you from medical appts, meetings, work or from getting things needed for daily living? No 10/15/2024 Utilities Answer Date Recorded In the past 12 months, has t he [employer], gas, oil or water [employer] threatened to shut off services in your home? No 10/15/2024 Depression Answer Date Recorded Patient Health Questionnaire-2 Score 2 10/15/2024 Internet Access Answer Date Recorded Internet Access Q1 Yes 10/15/2024 Internet Access Q2 Not on file 10/15/2024 Sex and Gender Information Value Date Recorded Sex Assigned at Male 02/04/2022 10:14 AM EDT Legal Sex Male 10:14 AM EDT Gender Identity Male 02/04/2022 10:14 AM EDT Sexual Orientation Choose not to disclose 2021 10:14 AM EDT documented as of this encounter Miscellaneous Notes * Addendum Note - Eleazar Goldstein RN - 10/25/2024 11:11 AM EDTAddended by: ELEAZAR GOLDSTEIN on: 10/25/2024 11:11 AM Modules accepted: Orders * Telephone Encounter - Eleazar Goldstein RN - 10/25/2024 11:08 AM EDT Patient presented to red team FD in regards to below message. Patient reports he needs a Tspot for an adult day program. Patient denies previous positive TB screening. Patient advised BW order has been placed and patient can go to the lab to have BW drawn at his convenience M-F before 3:30pm. Patient verbalized understanding. Patient to f/u PRN. * Telephone Encounter - Eleazar Goldstein RN - 10/20/2024 10:20 AM EDT TC placed to patient [phone] in regards to below message however no answer, RN left requesting CB to red team nurses. TC placed to [phone] however received automated recording we're sorry your call did not go through . TC placed to [phone] however received automated recording we're sorry your call did not go through . Patient to f/u PRN. * Telephone Encounter - Nicolette Howard - 10/20/2024 9:12 AM EDT Tc from pt requesting TB test for a program Contact pt at [phone] Need aerial photograph interpreter documented in this encounter Plan of Treatment Upcoming Encounters Date Type Department Care Team (Late st Contact Info) Description 12/10/2024 9:00 AM EDT Office Visit [facility] [address] [place] [phone] Patti Moreno MD [address] [place] [address] Scheduled Orders Name Type Priority Associated Diagnoses Orde r Schedule T-SPOT .TB Lab Routine Encounter for screening for respiratory tuberculosis Expected: 10/25/2024 (Approximate), Expires: 10/25/2025 documented as of this encounter Visit Diagnoses Diagnosis Encounter for screening for respiratory tuberculosis documented in this encounter Additional Health Concerns Assessment Noted Time PHQ-9 Depression Total Score: 7 10/16/19 25 10:35 AM EDT documented as of this encounter Care Teams Pulper Relationship Specialty Start Date End Date Patti Moreno MD [address] [place] [address] PCP - General Family Medicine 12/25/17 Shonna Bautista RN [address] [place] [address] Pack MasterManager Terminal 10/29/23 documented as of this encounter
[2024-10-25 13:12] LABS: Hematocrit 37.1 % (42.0-52.0); Hemoglobin 12.4 g/dl (14.0-18.0); Imm Gran Abs Auto 0.04 X10*3/uL (0.00-0.03); Imm Gran Pct Auto 0.5 % (0.0-0.4); Lymphocytes Absolute Auto 1.9 X10*3/uL (1.2-4.9); MANUAL DIFF FLAG SCAN; Mean Corpuscular HGB Conc 33.4 g/dl (31.0-36.0); Mean Corpuscular Hemoglobin 31.6 pg (27.0-33.0); Mean Corpuscular Volume 94.6 fL (80.0-98.0); NRBC Abs Auto 0.000 X10*3/uL (0.0-0.012); NRBC Pct Auto 0.0 /100WBC (0.0-0.2); Platelet Count 361 X10*3/uL (160-400); Red Blood Count 3.92 X10*6/uL (4.60-5.80); SCAN SMEAR FLAG 1
[2024-10-25 13:21] LABS: Hemoglobin A1C 138.8930 umol/L; Total Hemoglobin (HGBA1C) 3252.2943 umol/L
[2024-10-25 13:47] LABS: Alanine Aminotransferase 19 U/L (0-40); Albumin Level 4.1 g/dL (3.5-5.0); Alkaline Phosphatase 131 U/L (39-117); Anion Gap 11 (12-20); Aspartate Amino Transferase 35 U/L (5-37); Blood Urea Nitrogen 13 mg/dL (9-16); Calcium 9.0 mg/dL (8.4-10.2); Carbon Dioxide 25 mmol/L (22-29); Chloride 111 mmol/L (96-108); Cholesterol 219 mg/dL (<200); Estimated Glomerular Filt Rate > 60; HDL Cholesterol 36 mg/dL (>40); Potassium 3.8 mmol/L (3.3-5.1); Sodium 143 mmol/L (135-145); Total Protein 7.8 g/dL (6.5-8.0); Triglycerides 276 mg/dL (<150)
[2024-10-25 13:59] LABS: White Blood Count 7.9 X10*3/uL (4.8-10.8)
[2024-10-26 08:23] LABS: HIV Num 1 0.05 S/CO (0.00-0.99); ~HepC Num1 0.28 S/CO (0.00-0.79); ~Hepatitis C Antibody Nonreactive (Nonreactive)
[2024-10-27 19:18] LABS: TS Negative Control Passed; TS Panel A 0; TS Panel B 0; TS Positive Control Passed; TSpotTB Negative (Negative)
== END 2024-10-25 11:13 | disposition home or self-care (01) ==
LOC: HO.HHCL 11:12
PROVIDERS: PCP Internal Medicine; Visit Provider Internal Medicine
DX: Z11.1 Encounter for screening for respiratory tuberculosis (principal); Z11.59 Encounter for screening for other viral diseases; Z11.4 Encounter for screening for human immunodeficiency virus [HIV]; M05.79 Rheumatoid arthritis with rheumatoid factor of multiple sites without organ or systems involvement
CPT/HCPCS: 36415; 80053; 80061; 82306; 83036; 84443; 85025; 86481; 86803; 87389

== ENCOUNTER 2025-03-15 12:40 | Emergency (ER) | payer MEDICAID, SELFPAY ==
--- NOTE | ~2025-03-15 | CT_ITS ---
EXAMINATION: CT CERVICAL SPINE WITHOUT CONTRAST CLINICAL INFORMATION: Pain. Headache.? Fall. COMPARISON: 09/03/2014. TECHNIQUE: Spiral CT imaging of the cervical spine performed in axial plane without contrast. Multiplanar reformatted images were constructed from the axial data set. This CT examination was performed using dose optimization techniques as appropriate, variously including the following: *Automated exposure control *Adjustment of mA and/or kV according to patient size (this includes techniques or standardized protocols for targeted exams where dose is matched to indication/reason for exam; i.e. extremities or head) *Use of iterative reconstruction technique FINDINGS: CORONAL ALIGNMENT: -There is a minimal levoconvex scoliosis, apex at C3. SAGITTAL ALIGNMENT: -Minimal straightening of the normal lordosis. No subluxations. C1-C2 AND CRANIOCERVICAL JUNCTION: -Intact and normally aligned. Very mild degenerative changes of the anterior atlantoaxial joint. VERTEBRAL BODIES AND FACETS: -There is no fracture, compression deformity, or traumatic subluxation. No suspicious bone lesion. -There is normal facet alignment bilaterally with mild multilevel degenerative hypertrophic facet change. This appears most significant at C4-5 on the left. -Mild to moderate multilevel uncinate spurring spanning C3-C7. DISCS: -Moderate disc degeneration is present spanning C3-C7, with mildly irregular endplate changes and sclerosis. There is sparing of the C2-3 and C7-T1 discs. CENTRAL CANAL: -No evidence of high-grade central canal narrowing or large disc herniation allowing for modality limitations. PREVERTEBRAL AND PARAVERTEBRAL SOFT TISSUES: -There is no prevertebral or paravertebral soft tissue swelling or edema. No abnormal fluid collection. -No mass or abnormal lymphadenopathy within the neck. The thyroid gland appears normal. LUNG APICES: -Minor scarring although clear bilaterally. No pneumothorax. CT/CT cervical spine wo IV con IMPRESSION: 1. No CT evidence of acute cervical spine fracture or injury. 2. Mild to moderate degenerative spondylosis of the cervical spine. Electronically signed by: Alex Velasquez MD 03/15/2025 02:25 PM [facility]
--- NOTE | ~2025-03-15 | CT_ITS ---
EXAMINATION: CT HEAD WITHOUT IV CONTRAST HISTORY: headache. TECHNIQUE: Unenhanced helical CT of the head was performed per standard departmental protocol. Coronal and sagittal reformats of the head were also evaluated. One or more of the following techniques was used for dose reduction: Automated exposure control, adjustment of the mA and/or kV according to patient size, use of iterative reconstruction technique. DLP: 697 mGy-cm COMPARISON: Previous head CT August 2014 FINDINGS: BRAIN: The brain parenchyma is unremarkable. There is normal mitchell/white differentiation. The ventricular system is normal in size and configuration. There is no mass effect or midline shift. No intra- or extra-axial fluid collections are identified. SINUSES: Membranous soft tissue thickening in the bilateral maxillary sinuses. Nasal septum is deviated to the left.. The mastoid air cells and middle ear cavities are well pneumatized. ORBITS: The visualized orbits are unremarkable. BONES/SOFT TISSUES: The extracranial soft tissues are unremarkable. The calvarium is intact. No suspicious lytic or sclerotic lesions. CT/CT head/brain wo IV con IMPRESSION: No acute intracranial abnormality. Membranous soft tissue thickening in the bilateral maxillary sinuses. Electronically signed by: Neris Farmer MD 03/15/2025 02:29 PM [facility]
--- OUTSIDE RECORDS SUMMARY | 2025-03-15 10:20 | XMS_ITS | Encounter Summary ---
Author Organization [employer] Address [address] [facility] [address] [place] [address] Care Team Providers Care Zipper Lining Folder Name Role Phone Patti Moreno MD Primary Care Provide r Shonna Bautista RN Unavailable [phone] Encounter Details Date Type Department Care Team (Late st Contact Info) Description 03/15/2025 10:20 AM EST Office Visit [facility] [address] [place], [place] [phone] Ion Hahn MD [address] [place] [address] Acute intractable headache, unspecified headache type (Primary Dx); Elevated blood pressure reading in office without diagnosis of hypertension Social History Tobacco Use Types Packs/Day Years Used Date Smoking Tobacco: Never Passive Smoke Exposure: Never Smokeless Tobacco: Never Tobacco Cessation:Counseling Given: Not Answered Alcohol Use Standard Drinks/Week Comments Never 0 (1 standard drink = 0.6 oz pur e alcohol) Alcohol Answer Date Recorded How often do [...] the past 12 months, has t he electric, gas, oil or water company threatened to shut off services in your home? No 10/15/2024 Depression Answer Date Recorded Patient Health Questionnaire-2 Score 2 12/10/2024 Internet Access Answer Date Recorded Internet Access Q1 Yes 10/15/2024 Internet Access Q2 Not on file 10/15/2024 Sex and Gender Information Value Date Recorded Sex Assigned at Male 02/04/2022 10:14 AM EDT Legal Sex Male 10:14 AM EDT Gender Identity Male 02/04/2022 10:14 AM EDT Sexual Orientation Choose not to disclose 2021 10:14 AM EDT documented as of this encounter Last Filed Vital Signs Vital Sign Reading Time Taken Comments Blood Pressure 147/85 03/15/2025 10:30 AM EST Pulse 77 03/15/2025 10:30 AM EST Temperature 36.4 C (97.6 F) 03/15/2025 10:30 AM EST Respiratory Rate 18 03/15/2025 10:30 AM EST Oxygen Saturation - - Inhaled Oxygen Concentration - - Weight 69.9 kg (154 lb 3.2 oz) 03/15/2025 10:30 AM EST Height 162.6 cm (5' 4 ) 03/15/2025 10:30 AM EST Body Mass Index 26.47 03/15/2025 10:30 AM EST documented in this encounter Progress Notes * Ion Hahn MD - 03/15/2025 10:20 AM EST Subjective Patient ID: Aries Billings is a 64 y.o. male. Pbx Technician: Johnson HPI Left parietal headache woke Aries at 4 AM last night, unable to describe headache. No recent illness, fever, trauma n/v/d, photosensitivity. Denies prior h/o similar headache. No family h/o migraines. Lives with a friend. Not employed. Quit smoking years ago. Occasional EtOH. 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 Postherpetic neuralgia 08/15/2022 Rheumatoid arthritis involving multiple sites with positive rheumatoid factor ([facility] ([facility]) 08/15/2022 Seropositive rheumatoid arthritis ([facility]) ([facility]) 08/15/2022 Psychosis ([facility]) ([facility]) 04/15/2022 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 Trigger finger of both hands 02/19/2017 Alcohol dependence ([facility]) 02/03/2017 Anemia 02/03/2017 Chronic back pain 02/03/2017 Gastroesophageal reflux disease 02/03/2017 Mild intermittent asthma 02/03/2017 Peptic ulcer 02/03/2017 Seasonal allergic rhinitis 02/03/2017 Mood disorder ([facility]) 02/03/2017 The following portions of the chart were reviewed this encounter and updated as appropriate: Tobacco Allergies Meds Problems Med Hx Surg Hx Fam Hx Review of Systems Constitutional: Negative for fever. Respiratory: Negative for shortness of breath. Cardiovascular: Negative for chest pain. Gastrointestinal: Negative for abdominal pain. Skin: Negative for rash. Neurological: Positive for headaches. Objective Physical Exam Constitutional: Appearance: Normal appearance. HENT: Right Ear: Tympanic membrane, ear canal and external ear normal. Left Ear: Tympanic membrane, ear canal and external ear normal. Nose: Nose normal. Mouth/Throat: Mouth: Mucous membranes are moist. Pharynx: Oropharynx is clear. Eyes: Conjunctiva/sclera: Conjunctivae normal. Pupils: Pupils are equal, round, and reactive to light. Cardiovascular: Rate and Rhythm: Normal rate and regular rhythm. Heart sounds: No murmur heard. Pulmonary: Effort: Pulmonary effort is normal. Breath sounds: Normal breath sounds. Musculoskeletal: General: Normal range of motion. Cervical back: No tenderness. Skin: Findings: No rash. Neurological: Mental Status: He is alert. Cranial Nerves: Cranial nerves 2-12 are intact. Sensory: Sensation is intact. Motor: Motor function is intact. Gait: Gait is intact. Psychiatric: Mood and Affect: Mood normal. Behavior: Behavior normal. Procedures Assessment/Plan Diagnoses and all orders for this visit: Acute intractable headache, unspecified headache type Discussed options with patient such as outpatient workup versus going to ED now. He prefers to go to the ED. Elevated blood pressure reading in office without diagnosis of hypertension Prescribed home BP monitor. Reviewed BP parameters, given written BP log that includes BP parameters, to keep daily. Call if BP readings are elevated. Other orders - Blood Pressure kit; 1 each 2 times daily. documented in this encounter Plan of Treatment Upcoming Encounters Date Type Department Care Team (Late st Contact Info) Description 04/21/2025 10:45 AM EST Office Visit [facility] [address] [place] [address] Patti Moreno MD [address] [place] [address] 07/06/2025 9:00 AM EDT Office Visit [facility] [address] [place] [address] Charmaine Clark, OD [address] [place] [address] documented as of this encounter Visit Diagnoses Diagnosis Acute intractable headache, unspecified headache type- Primary Elevated blood pressure reading in office without diagnosis of hypertension documented in this encounter Additional Health Concerns Assessment Noted Time PHQ-9 Depression Total Score: 7 10/16/19 25 10:35 AM EDT documented as of this encounter Care Teams Zipper Lining Folder Relationship Specialty Start Date End Date Patti Moreno MD [address] [place] [address] [place] [address] PCP - General Family Medicine 12/25/17 Shonna Bautista RN [address] [place] [address] Automotive Quality ManagerHuman Performance Consultant 10/29/23 documented as of this encounter
[2025-03-15 12:58] VITALS: BP 132/81; PULSE 75; RESP 16; TEMP 36.3; O2SAT 97; BMI 26.3
--- NOTE | 2025-03-15 13:06 | ED.GENADULT ---
HPI - General Adult General Chief complaint: Headache Stated complaint: headache Time Seen by Provider: 03/15/25 15:44 Source: patient Mode of arrival: ambulatory Limitations: no limitations History of Present Illness ED Provider: Morgan Mccracken [facility] narrative: 64-year-old male presents to the ED for posterior neck pain with headache without any trauma dina down bilateral upper extremities. Patient denies any chest pain or shortness of breath. Patient denies any slurred speech, facial droop or paralysis of extremities. Patient denies any photophobia, nausea, vomiting, fever, or chills. Related Data Home Medications ?Medication ?Instructions ?Recorded ?Confirmed atorvastatin 20 mg tablet 20 mg PO BEDTIME 04/25/20 07/31/21 clonidine HCl 0.2 mg tablet 0.2 mg PO BEDTIME 04/25/20 07/31/21 escitalopram oxalate 20 mg tablet 20 mg PO DAILY 04/25/20 07/31/21 ferrous sulfate 325 mg (65 mg 325 mg PO DAILY 04/25/20 07/31/21 iron) tablet gabapentin 300 mg capsule 300 mg PO BID 04/25/20 07/31/21 multivitamin 1 tab PO DAILY 04/25/20 07/31/21 naltrexone 50 mg tablet 50 mg PO DAILY 04/25/20 07/31/21 omeprazole 20 mg tablet,delayed 20 mg PO DAILY 04/25/20 07/31/21 release quetiapine 25 mg tablet 25 mg PO DAILY 04/25/20 07/31/21 Previous Rx's ?Medication ?Instructions ?Recorded ibuprofen 600 mg tablet 600 mg PO Q8H PRN pain #20 tabs 04/26/21 naproxen 500 mg tablet 500 mg PO BID PRN pain #14 tabs 03/15/25 prednisone 20 mg tablet 40 mg (2 x 20 mg) PO DAILY 5 days 03/15/25 #10 tabs Allergies Allergy/AdvReac Type Severity Reaction Status Date / Time No Known Allergies (No Known Allergy Verified 03/15/25 13:03 Allergies*) Review of Systems Review of Systems: neck pain Yes all other systems are reviewed and are negative PMFSH Past Medical History Medical History Alcoholism with alcohol dependence Anemia Asthma Chronic back pain GERD (gastroesophageal reflux disease) Peptic ulcer Trigger finger Surgical History H/O hand surgery Social History Social History Alcohol intake: former Patient Tobacco Use Status: Former Tobacco user Tobacco use type: Cigarette Cigarettes Per Day: 4 Years Smoked: 15 Advance Directives: No Advance Directives Information Provided: No Do you have a plan to hurt others: No Plan Current occupation: Right handed Physical Exam ED Vital Signs: Vital Signs - 24 hr 03/15/25 12:58 Temperature 97.3 F Pulse Rate 75 Respiratory Rate 16 Blood Pressure 132/81 Pulse Oximetry 97 Oxygen Delivery Method Room Air BMI result Body Mass Index 26.3 Const Orientation/consciousness: patient oriented x3 HENMT Head: Yes normal to inspection, Yes No palpable skull fracture present, Yes normocephalic and Yes atraumatic Eyes General: appearance normal, both eyes and all related structures Neck Neck: Yes normal visual inspection, Yes full ROM, Yes no lymphadenopathy, Yes no meningeal signs, Yes trachea midline, Yes supple, No anterior neck swelling and Yes tender (posterior cervical) Chest Chest palpation & inspection: normal inspection of the chest and normal palpation of entire chest wall Resp Effort & Inspection: normal respiratory effort and able to speak in complete sentences Auscultation: clear to auscultation bilaterally Cardio Jugular venous distension: no JVD Heart sounds: S1 normal heart sound present and S2 normal heart sound present GI Inspection: Yes normal to inspection Palpation (GI): Soft to palpation, not firm, nontender, no guarding and not rigid General: Yes no CVA tenderness Back/Spine/Pelvis Back: no CVA tenderness and No back tenderness Skin General skin exam: no rashes or lesions noted, elasticity normal and turgor normal Neuro General: patient oriented x3, gait normal, tone normal, moves all extremities, Normal light touch and pain sensation, no meningeal signs, no focal motor deficits, CN's II-XI intact bilaterally and normal sensation to monofilament Extrem General: Yes normal to inspection, Yes full ROM and Yes capillary refill normal Psych Appearance: grossly normal and well kempt Course Course Course Narrative: RME: 64 year male presents to ED left-sided headache radiating to neck since last night without nausea vomiting dizziness. Medical Decision Making Medical Decision Making [facility] Narrative: RME: 64-year-old male presents to ED for cervical spine pain with referred pain going down bilateral upper extremities. Patient denies any trauma. EKG nondiagnostic negative STEMI. Two troponins negative. Head CT scan normal. Cervical spine shows arthritis. Not suspecting meningitis, stroke, encephalitis, cartoid/vertebral dissection, VA, PE, brain aneursym, or any other life threatening etiology. Patient explained worrisome signs informed return to the ED immediately Differential Diagnosis Differential Diagnoses: The differential diagnosis associated with the presentation includes (VA, cervical radiculopathy, brain bleed) Admission/Observation Consideration of admission/observation: Escalation of care including admission/observation considered Lab Data MDM Lab Attestation statement: I reviewed the patient's lab results. 03/15/25 13:18 03/15/25 13:18 Labs: Lab Results 03/15/25 03/15/25 Range/Units 13:18 14:56 WBC 7.4 (4.8-10.8) X10*3/uL RBC 3.79 L (4.60-5.80) X10*6/uL Hgb 11.8 L (14.0-18.0) g/dl Hct 35.3 L (42.0-52.0) % MCV 93.1 (80.0-98.0) fL MCH 31.1 (27.0-33.0) pg MCHC 33.4 (31.0-36.0) g/dl RDW 13.1 (11.0-16.0) % Plt Count 323 (160-400) X10*3/uL MPV 10.3 (9.4-12.4) fL Immature Gran % (Auto) 0.3 (0.0-0.4) % Neut % (Auto) 56.0 (45-73) % Lymph % (Auto) 32.1 (20-40) % Piute % (Auto) 8.2 (2-11) % Eos % (Auto) 2.7 (0-4) % Baso % (Auto) 0.7 (0-2) % Lymph # (Auto) 2.4 (1.2-4.9) X10*3/uL Piute # (Auto) 0.6 (0.1-1.2) X10*3/uL Eos # (Auto) 0.2 (0.0-0.4) X10*3/uL Baso # (Auto) 0.1 (0.0-0.2) X10*3/uL Abs Immat Gran (auto) 0.02 (0.00-0.03) X10*3/uL Absolute Neuts (auto) 4.2 (2.0-8.3) x10*3/uL Absolute Nucleated RBC 0.000 (0.0-0.012) X10*3/uL Nucleated RBC % (auto) 0.0 (0.0-0.2) /100WBC PT 11.2 (11.2-13.5) SEC INR 0.9 (0.9-1.1) APTT 28.1 (26.7-34.1) SEC Sodium 137 (135-145) mmol/L Potassium 4.5 (3.3-5.1) mmol/L Chloride 106 (96-108) mmol/L Carbon Dioxide 27 (22-29) mmol/L Anion Gap 9 L (12-20) BUN 20 H (9-16) mg/dL Creatinine 1.19 (0.5-1.4) mg/dL Estim Creat Clear Calc 52.5 Estimated GFR > 60 Random Glucose 110 (60-115) mg/dL Calcium 9.6 D (8.4-10.2) mg/dL Total Bilirubin 0.2 (0.0-1.0) mg/dL AST 36 (5-37) U/L ALT 26 (0-40) U/L Alkaline Phosphatase 139 H (39-117) U/L Troponin I High Sens < 2.7 < 2.7 (<3.5-35.0) ng/L Total Protein 8.1 H (6.5-8.0) g/dL Albumin 4.3 (3.5-5.0) g/dL Independent Interpretation I performed an independent interpretation of an: EKG (non diagnositc) and CT Scan Radiology Impression Discussion of test interpretation with radiology: I have reviewed the radiologist's reading. Prescription Management I considered prescription management with: Pain Medication Discharge Plan Discharge Clinical Impression: Cervical radiculopathy Patient Disposition: Home, Self-Care Instructions: Cervical Radiculopathy (ED) Additional Instructions: You will need follow-up with primary care provider and spinal surgeon. Return to the ED immediately for worsening pain, numbness/paralysis of upper extremities, chest pain, shortness of breath, facial droop, headache, nausea, vomiting, loss of vision, or any other concerning symptoms. [address] [address] [address] Scan Report Signed Patient: Aries Billings MR#: [id number] : 1960 Acct:[id number] Age/Sex: 64 / M ADM Date: 03/15/25 Loc: HO.ED Attending Dr: Ordering Physician: Morgan Mccracken Date of Service: 03/15/25 Procedure(s): CT cervical spine wo IV con Accession Number(s): [id number] cc: Morgan Mccracken; Patti Moreno MD~ Report Number: [id number]: Total DLP = 374.52 mGy-cm Reason for Exam: pain EXAMINATION: CT CERVICAL SPINE WITHOUT CONTRAST CLINICAL INFORMATION: Pain. Headache.? Fall. COMPARISON: 09/03/2014. TECHNIQUE: Spiral CT imaging of the cervical spine performed in axial plane without contrast. Multiplanar reformatted images were constructed from the axial data set. This CT examination was performed using dose optimization techniques as appropriate, variously including the following: *Automated exposure control *Adjustment of mA and/or kV according to patient size (this includes techniques or standardized protocols for targeted exams where dose is matched to indication/reason for exam; i.e. extremities or head) *Use of iterative reconstruction technique FINDINGS: CORONAL ALIGNMENT: -There is a minimal levoconvex scoliosis, apex at C3. SAGITTAL ALIGNMENT: -Minimal straightening of the normal lordosis. No subluxations. C1-C2 AND CRANIOCERVICAL JUNCTION: -Intact and normally aligned. Very mild degenerative changes of the anterior atlantoaxial joint. VERTEBRAL BODIES AND FACETS: -There is no fracture, compression deformity, or traumatic subluxation. No suspicious bone lesion. -There is normal facet alignment bilaterally with mild multilevel degenerative hypertrophic facet change. This appears most significant at C4-5 on the left. -Mild to moderate multilevel uncinate spurring spanning C3-C7. DISCS: -Moderate disc degeneration is present spanning C3-C7, with mildly irregular endplate changes and sclerosis. There is sparing of the C2-3 and C7-T1 discs. CENTRAL CANAL: -No evidence of high-grade central canal narrowing or large disc herniation allowing for modality limitations. PREVERTEBRAL AND PARAVERTEBRAL SOFT TISSUES: -There is no prevertebral or paravertebral soft tissue swelling or edema. No abnormal fluid collection. -No mass or abnormal lymphadenopathy within the neck. The thyroid gland appears normal. LUNG APICES: -Minor scarring although clear bilaterally. No pneumothorax. CT/CT cervical spine wo IV con IMPRESSION: 1. No CT evidence of acute cervical spine fracture or injury. 2. Mild to moderate degenerative spondylosis of the cervical spine. Electronically signed by: Alex Velasquez MD 03/15/2025 02:25 PM [facility] Prescriptions: New prednisone 20 mg tablet 40 mg PO DAILY 5 Days Qty: 10 0RF naproxen 500 mg tablet 500 mg PO BID PRN (Reason: pain) Qty: 14 0RF No Action ibuprofen 600 mg tablet 600 mg PO Q8H PRN (Reason: pain) Qty: 20 0RF omeprazole 20 mg tablet,delayed release (DR/EC) 20 mg PO DAILY clonidine HCl 0.2 mg tablet 0.2 mg PO BEDTIME escitalopram oxalate 20 mg tablet 20 mg PO DAILY ferrous sulfate 325 mg (65 mg iron) tablet 325 mg PO DAILY gabapentin 300 mg capsule 300 mg PO BID multivitamin Tablet 1 tab PO DAILY naltrexone 50 mg tablet 50 mg PO DAILY atorvastatin 20 mg tablet 20 mg PO BEDTIME quetiapine 25 mg tablet 25 mg PO DAILY Referrals: Patti Moreno MD [Primary Care Provider, Internal Medicine] - 2 days Referral Note: Cervical radiculopathy Clinical Impression: Cervical radiculopathy Ryan Guajardo MD, PhD [Physician, Neuro Spine] - 2 days Referral Note: Cervical radiculopathy Clinical Impression: Cervical radiculopathy Interventions: ED Discharge Assessment Last Done: 03/15/25 17:25 Discharge Date/Time: 03/15/25 17:25 Print Language: Liberian
--- NOTE | 2025-03-15 13:07 | ECG_ITS ---
Test Reason : NECK PAIN Blood Pressure : */* mmHG Vent. Rate : 74 BPM Atrial Rate : 74 BPM P-R Int : 150 ms QRS Dur : 62 ms QT Int : 408 ms P-R-T Axes : 50 12 43 degrees QTcB Int : 452 ms Normal sinus rhythm Normal ECG When compared with ECG of 22-Dec-2014 16:20, No significant change was found Referred By: Morgan Mccracken Electronically Signed By: KEISHA ALSTON MD
[2025-03-15 13:29] LABS: MANUAL DIFF FLAG NO
[2025-03-15 13:30] LABS: Hematocrit 35.3 % (42.0-52.0); Hemoglobin 11.8 g/dl (14.0-18.0); Imm Gran Abs Auto 0.02 X10*3/uL (0.00-0.03); Imm Gran Pct Auto 0.3 % (0.0-0.4); Lymphocytes Absolute Auto 2.4 X10*3/uL (1.2-4.9); Mean Corpuscular HGB Conc 33.4 g/dl (31.0-36.0); Mean Corpuscular Hemoglobin 31.1 pg (27.0-33.0); Mean Corpuscular Volume 93.1 fL (80.0-98.0); NRBC Abs Auto 0.000 X10*3/uL (0.0-0.012); NRBC Pct Auto 0.0 /100WBC (0.0-0.2); Platelet Count 323 X10*3/uL (160-400); Red Blood Count 3.79 X10*6/uL (4.60-5.80); White Blood Count 7.4 X10*3/uL (4.8-10.8)
[2025-03-15 13:42] LABS: INTERNATIONAL NORM RATIO 0.9 (0.9-1.1); Prothrombin Time 11.2 SEC (11.2-13.5)
[2025-03-15 13:45] LABS: Partial Thromboplastin Time 28.1 SEC (26.7-34.1)
[2025-03-15 13:49] LABS: Alanine Aminotransferase 26 U/L (0-40); Albumin Level 4.3 g/dL (3.5-5.0); Alkaline Phosphatase 139 U/L (39-117); Anion Gap 9 (12-20); Aspartate Amino Transferase 36 U/L (5-37); Blood Urea Nitrogen 20 mg/dL (9-16); Calcium 9.6 mg/dL (8.4-10.2); Carbon Dioxide 27 mmol/L (22-29); Chloride 106 mmol/L (96-108); Creatinine Clr Calc Pharmacy 52.5; Estimated Glomerular Filt Rate > 60; Potassium 4.5 mmol/L (3.3-5.1); Sodium 137 mmol/L (135-145); Total Protein 8.1 g/dL (6.5-8.0)
[2025-03-15 13:59] LABS: Troponin-I High Sensitivity < 2.7 ng/L (<3.5-35.0)
[2025-03-15 15:28] LABS: Troponin-I High Sensitivity < 2.7 ng/L (<3.5-35.0)
[2025-03-15 17:25] VITALS: BP 132/81; PULSE 75; RESP 16; TEMP 36.3; O2SAT 97
--- OUTSIDE RECORDS SUMMARY | 2025-03-15 22:59 | XMS_ITS | Encounter Summary ---
Author Organization [employer] Address [address] [facility] [address]t [place] [address] Care Team Providers Care Care Provider Name Role Phone Patti Moreno MD Primary Care Provide r Shonna Bautista RN Unavailable [phone] Reason for Visit * Reason Comments Med Refill Encounter Details Date Type Department Care Team (Late st Contact Info) Description 11/10/2024 Refill [facility] MEDICINE [address] [place], [place] [phone] Patti Moreno MD [address] [place], [place] [phone] Mild intermittent asthma with acute exacerbation Social History Tobacco Use Types Packs/Day Years [...] the past 12 months, has t he [employer], gas, oil or water company threatened to [...] AM EDT documented as of this encounter Plan of Treatment Upcoming Encounters Date Type Department Care Team (Late st Contact Info) Description 04/21/2025 10:45 AM EST Office Visit [facility] MEDICINE [address] [place] [address] Patti Moreno MD [address] [place] [address] 07/06/2025 9:00 AM EDT Office Visit [facility] OPTOMETRY [address] [place] [address] Eduardo, Charmaine, OD [address] [place] [address] documented as of this encounter Visit Diagnoses Diagnosis Mild intermittent asthma with acute exacerbation documented in this encounter Additional Health Concerns Assessment Noted Time PHQ-9 Depression Total Score: 7 10/16/19 25 10:35 AM EDT documented as of this encounter Care Teams Care Provider Relationship Specialty Start Date End Date Patti Moreno MD [address] [place] [phone] PCP - General Family Medicine 12/25/17 Shonna Bautista RN [address] [place] [phone] Trim Setter HelperBulking Machine Operator 10/29/23 documented as of this encounter
--- OUTSIDE RECORDS SUMMARY | 2025-03-15 23:00 | XMS_ITS | Encounter Summary ---
Author Organization [employer] Address [address] [facility] [address] 7[address] [place] [address] Care Team Providers Care Animal Care Taker Name Role Phone Patti Moreno MD Primary Care Provide r Shonna Bautista RN Unavailable [phone] Reason for Visit * Reason Onset Date Comments Care Management 09/10/2023 [id number] revie w Encounter Details Date Type Department Care Team ([facility] st Contact Info) Description 09/10/2023 Telephone [facility] MEDICINE [address] [place], [place] [phone] Gia Samano RN Care Management ([id number] review) Social History Tobacco Use Types Packs/Day Years Used Date Smoking Tobacco: Never Passive Smoke Exposure: Never Smokeless Tobacco: Never Depression Answer Date Recorded Patient Health Questionnaire-9 Score 0 06/24/2023 Patient Health Questionnaire-9 Score 0 06/24/2023 Last PHQ-9: Questionnaire Data Not on file 0 06/24/2023 Housing Stability Answer Date Recorded What is your housing situation today? I have wisam siddiqi 06/19/[address] you li ve. Do you have problems with any of the following? None of the above 06/19/2023 Food Insecurity Answer Date Recorded Within the past 12 months, y ou worried that your food would run out before you got money to buy more: Never True 06/19/2023 Within the past 12 months,th e food you bought just didn't last and you didn't have enough money to get more: Never True Transportation Answer Date Recorded In the past 12 months, has l ack of transportation kept you from medical appts, meetings, work or from getting things needed for daily living? Yes, it has kept me from medical appointments or getting medications. 09/10/2023 Utilities Answer Date Recorded In the past 12 months, has t he electric, gas, oil or water company threatened to shut off services in your home? No 06/19/2023 Depression Answer Date Recorded Patient Health Questionnaire-2 Score 0 06/24/2023 Sex and Gender Information Value Date Recorded [...] Description 04/21/2025 10:45 AM EST Office Visit [facility] MEDICINE [address] [place] [address] Patti Moreno MD [address] [place] [address] 07/06/2025 9:00 AM EDT Office Visit [facility] OPTOMETRY [address] [place] [address] Eduardo, Charmaine, OD [address] [place] [address] documented as of this encounter Visit Diagnoses Not on filedocumented in this encounter Additional Health Concerns Assessment Noted Time PHQ-9 Depression Total Score: 0 06/24/19 24 9:16 AM EDT documented as of this encounter Care Teams Animal Care Taker Relationship Specialty Start Date End Date Patti Moreno MD [address] [place] [address] PCP - General Family Medicine 12/25/17 Shonna Bautista RN [address] [place] [phone] Insurance Verification RepresentativeUltrasound Tester 10/29/23 documented as of this encounter
--- OUTSIDE RECORDS SUMMARY | 2025-03-15 23:00 | XMS_ITS | Encounter Summary ---
Author Organization [employer] Address [address] [facility] [address] 7[address] [place] [address] Care Team Providers Care Collector Name Role Phone Patti Moreno MD Primary Care Provide r Shonna Bautista RN Unavailable [phone] Encounter Details Date Type Department Care Team ([facility] st Contact Info) Description 03/15/2025 Telephone [facility] MEDICINE [address] [place], [place] [phone] Patti Moreno MD [address] [place], [place] [phone] Social History Tobacco Use Types Packs/Day Years Used Date Smoking Tobacco: Never Passive Smoke Exposure: Never Smokeless Tobacco: Never Alcohol Use Standard Drinks/Week Comments Never 0 [...] as of this encounter Miscellaneous Notes * Telephone Encounter - Dee Gould RN - 03/15/2025 10:56 AM EST Called [facility], gave expect to Sheba: pt coming via bus with acute intractable left parietal headache, persist since 4am, BP mildly elevated, no history of headaches. Sheba verbalized understanding. documented in this encounter Plan of Treatment Upcoming Encounters Date Type Department Care Team (Late st Contact Info) Description 04/21/2025 10:45 AM EST Office Visit [facility] MEDICINE [address] [place], [place] [phone] Patti Moreno MD [address] [place] [address] 07/06/2025 9:00 AM EDT Office Visit [facility] OPTOMETRY [address] [place] [address] Charmaine Clark, OD [address] [place] [address] documented as of this encounter Visit Diagnoses Not on filedocumented in this encounter Additional Health Concerns Assessment Noted Time PHQ-9 Depression Total Score: 7 10/16/19 25 10:35 AM EDT documented as of this encounter Care Teams Collector Relationship Specialty Start Date End Date Patti Moreno MD [address] [place] [address] PCP - General Family Medicine 12/25/17 Shonna Bautista RN [address] [place] [phone] News PhotographerSupervisor Lending Activities 10/29/23 documented as of this encounter
--- OUTSIDE RECORDS SUMMARY | 2025-03-15 23:00 | XMS_ITS | Encounter Summary ---
Author Organization [employer] Address [address] [place] [address] [address] [place] [address] Care Team Providers Care Call Or Contact Centre Team Leader Name Role Phone Patti Moreno MD Primary Care Provide r Shonna Bautista RN Unavailable [phone] Encounter Details Date Type Department Care Team (Late Contact Info) Description 12/17/2022 Orders Only [facility] MEDICINE [address] [place] [phone] ProviderManny MD Social History Tobacco Use Types Packs/Day Years Used Date Smoking Tobacco: Never Passive Smoke Exposure: Never Smokeless Tobacco: Never Depression Answer Date Recorded Patient Health Questionnaire-9 Score 1 08/05/2022 Depression Answer Date Recorded Patient Health Questionnaire-2 Score 0 08/05/2022 Sex and Gender Information Value Date Recorded [...] Description 04/21/2025 10:45 AM EST Office Visit [facility] MEDICINE [address] [place], [place] [phone] Patti Moreno MD [address] [place], [place] [phone] 07/06/2025 9:00 AM EDT Office Visit [facility] OPTOMETRY [address] [place] [address] [phone] Charmaine Clark OD [address] [place] [address] documented as of this encounter Procedures Procedure Name Priority Date/Time Associated Diagnosis Comments HM COLONOSCOPY Routine 03/16/2018 documented in this encounter Results * Hm Colonoscopy (03/16/2018) us Historical Provider HEALTH MAINTENANCE Final Result documented in this encounter Visit Diagnoses Not on filedocumented in this encounter Additional Health Concerns Assessment Noted Time PHQ-9 Depression Total Score: 1 08/06/19 23 9:19 AM EDT documented as of this encounter Care Teams Call Or Contact Centre Team Leader Relationship Specialty Start Date End Date Patti Moreno MD [address] [place] [address] PCP - General Family Medicine 12/25/17 Shonna Bautista RN [address] [place] [address] Instructional LeaderOiling Machine Operator 10/29/23 documented as of this encounter
--- OUTSIDE RECORDS SUMMARY | 2025-03-15 23:00 | XMS_ITS | Encounter Summary ---
Author Organization [employer] Address [address] [place] [address] [address] [place] [address] Care Team Providers Care Nut Sorter Operator Name Role Phone Patti Moreno MD Primary Care Provide r Shonna Bautista RN Unavailable [phone] Reason for Visit * Reason Comments Med Refill Encounter Details Date Type Department Care Team (Late st Contact Info) Description 01/02/2023 Refill [facility] MEDICINE [address] [place] [phone] [facility] [address] [place], [place] [phone] Dyspepsia Social History Tobacco Use Types Packs/Day Years [...] Description 04/21/2025 10:45 AM EST Office Visit [facility] MEDICINE [address] [place], [place] [phone] Patti Moreno MD [address] [place], [place] [phone] 07/06/2025 9:00 AM EDT Office Visit [facility] OPTOMETRY [address] [place], [place] [phone] Charmaine Clark, OD [address] [place] [address] documented as of this encounter Visit Diagnoses Diagnosis Dyspepsia Dyspepsia and other specified disorders of function of stomach documented in this encounter Additional Health Concerns Assessment Noted Time PHQ-9 Depression Total Score: 1 08/06/19 23 9:19 AM EDT documented as of this encounter Care Teams Nut Sorter Operator Relationship Specialty Start Date End Date Patti Moreno MD [address] [place] [address] PCP - General Family Medicine 12/25/17 Shonna Bautista RN [address] [place] [phone] Global Category ManagerBase Loader 10/29/23 documented as of this encounter
--- OUTSIDE RECORDS SUMMARY | 2025-03-15 23:00 | XMS_ITS | Clinical Summary ---
Author Organization [employer] Address [address] [place] [address] [address] [place] [address] Care Team Providers Care Shredder Tender Name Role Phone Patti Moreno MD Primary Care Provide r Shonna Bautista RN Unavailable Allergies No known active allergies Medications * This document contains information received from the source organization and may not represent a complete record from that organization. risperiDONE (RisperDAL) 0.25 MG tabletIndication s:Psychosis, unspecified psychosis type (CMS/HCC) (HCC) Take 1 tablet (0.25 mg) by mouth at bedtime. Take with Risperidone 1 mg at bedtime 90 tablet 3 4 Active naltrexone (Depade) 50 MG tabletIndication s:Alcoholism (CMS/HCC) (HCC) TAKE 1 TABLET BY MOUTH EVERY MORNING 30 tablet 1 4 Active risperiDONE (RisperDAL) 1 MG tabletIndication s:Psychosis, unspecified psychosis type (CMS/HCC) (HCC) Take 1 tablet (1 mg) by mouth at bedtime. 90 tablet 3 5 Active gabapentin (Neurontin) 300 MG capsuleIndicatio ns:Psychosis, unspecified psychosis type (CMS/HCC) (HCC) Take 1 capsule (300 mg) by mouth at bedtime. 90 capsule 3 5 Active famotidine (Pepcid) 20 MG tabletIndication s:Dyspepsia TAKE 1 TABLET BY MOUTH TWICE DAILY IN THE MORNING AND AT BEDTIME 180 tablet 1 5 Active fluticasone (Flonase) 50 MCG/ACT nasal spray Administer 2 sprays into each nostril Once per day. Shake gently. Before first use, prime pump. After use, clean tip and replace cap. 48 g 1 5 Active Spacer/Aero-Hold ing Chambers (OptiChamber Halima) misc 1 each every 4 (four) hours if needed (asthma). 1 each 5 Active acetaminophen (Tylenol) 500 MG tablet Take 2 tablets (1,000 mg) by mouth every 6 (six) hours if needed for moderate pain or fever for up to 25 doses. 50 tablet 5 Active atorvastatin (Lipitor) 40 MG tabletIndication s:Dyslipidemia Take 1 tablet (40 mg) by mouth Once per day. 30 tablet 11 5 12/11/19 26 Active Ketotifen Fumarate 0.035 % solution PLACE 1 DROP IN THE AFFECTED EYE (s) TWICE DAILY IN THE MORNING AND AT BEDTIME NEEDED FOR ITCHING, REDNESS 10 mL 5 Active Ferrous Sulfate (iron) 325 (65 Fe) MG tabletIndication s:Iron deficiency TAKE 1 TABLET BY MOUTH EVERY OTHER DAY IN THE MORNING 45 tablet 1 5 Active Ascorbic Acid (vitamin C) 250 MG tabletIndication s:Iron deficiency TAKE 1 TABLET BY MOUTH EVERY OTHER DAY IN THE MORNING 45 tablet 1 5 Active Multiple Vitamin (Multivitamin) tabletIndication s:Dyspepsia TAKE 1 TABLET BY MOUTH EVERY MORNING 90 tablet 1 5 Active albuterol 108 (90 Base) MCG/ACT inhalerIndicatio ns:Mild intermittent asthma with acute exacerbation Inhale 2 puffs every 4 (four) hours if needed for wheezing. 18 g 2 5 Active benzocaine-menth ol (Chloraseptic) 6-10 MG lozengeIndicatio ns:Sore throat,Viral URI Dissolve 1 lozenge in the mouth every 2 (two) hours if needed for sore throat. 100 lozenge 5 01/19/20 Active Blood Pressure kit 1 each 2 times daily. 1 kit 5 03/15/20 Active Active Problems Problem Noted Date Diagnosed Date Viral URI 01/18/2025 Assessment & Plan (01/18/2025 10:35 AM EDT): Symptomatology and exam indicative of this Neg: Flu, Covid and Strep Plan: supportive measures Throat lozenges, Robitussin PRN Asked to come back if symptoms do not improve or worsen Dyslipidemia 12/10/2024 Assessment & Plan (12/10/2024 9:40 AM EDT): Extensive counseling about healthy diet and exercise done today ASCVD 10-year risk score is 12.2 I started patient on atorvastatin 40 mg daily Plan is to recheck LFTs in about 3 months Prediabetes 12/10/2024 Assessment & Plan (12/10/2024 9:40 AM EDT): Extensive counseling about healthy diet and exercise done today, labs were reviewed with patient I let him know his A1c is 6.1 which means he is at risk for diabetes 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 Assessment & Plan (12/10/2024 9:41 AM EDT): Patient diagnosed back in [place], when he came here his insurance was not active now that it is I will refer him to neurology Assessment & Plan (10/15/2024 4:44 PM EDT): I will refer him to neurology as soon as he fix his insurance Mild depression 10/15/2024 TRINY (generalized anxiety disorder) 10/15/2024 Encounter for preventive care 02/14/2023 Assessment & Plan (12/10/2024 9:40 AM EDT): See HPI Assessment & Plan (02/14/2023 3:10 PM EST): See HPI Colon cancer screening 02/14/2023 Dry eye 02/14/2023 Mild intermittent asthma with acute exacerbation 02/14/2023 Assessment & Plan (10/15/2024 4:45 PM EDT): Stable continue with same interventions I will refill his albuterol Assessment & Plan (06/30/2023 10:17 AM EDT): Controled, patient educated to avoid triggers, c/w same interventions Assessment & Plan (02/14/2023 3:09 PM EST): Patient educated to avoid triggers albuterol 2 puffs Q 6hrs Chronic kidney disease 08/15/2022 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) 08/15/2022 Assessment & Plan (12/10/2024 9:41 AM EDT): I will refer patient to rheumatology Assessment & Plan (10/15/2024 4:41 PM EDT): Blood work ordered, patient will be contacted with results Patient may take acetaminophen as needed I will refer him to rheumatology as soon as he fixes his insurance Assessment & Plan (06/30/2023 10:17 AM EDT): Continue to follow with specialist Assessment & Plan (08/15/2022 11:26 AM EDT): Continue has stabilized continue to follow with patient service rep Seropositive rheumatoid arthritis ([facility]) 08/05 Psychosis ([facility]) 04/15/2022 Assessment & Plan (10/15/2024 4:41 PM EDT): I restarted him his risperidone and gabapentin Patient referred to [facility] Assessment & Plan (06/24/2023 9:44 AM EDT): Pt presented with a long history of auditory command hallucinations, which are still controlled. Sleeping well and nightmares no longer bothering him. No therapist currently and not interested in referral. He will continue Risperidone 1 mg plus Risperidone 0.25 mg at bedtime, Gabapentin 300 mg at bedtime, Escitalopram 20 mg daily, and Clonidine 0.2 mg BID. Because this provider will be retiring, I have sent prescriptions for 1 year supply of all meds and will discuss case with PCP for continued management. I have wished the patient well and advised him to call [facility] and/or F/U with PCP for any -related concerns. He agrees with the plan. Assessment & Plan (04/24/2023 10:47 AM EST): Pt presented with a long history of auditory command hallucinations, which are still controlled. Sleeping well and nightmares no longer bothering him. No therapist currently and not interested in referral. He will continue Risperidone 1 mg plus Risperidone 0.25 mg at bedtime, Gabapentin 300 mg at bedtime, Escitalopram 20 mg daily, and Clonidine 0.2 mg BID. Today 04/24/2023 provider informed patient that I would be retiring,but we would make every effort to ensure continuity of care. Meanwhile, F/U 2 months. He agrees with the plan. Assessment & Plan (08/05/2022 9:41 AM EDT): Pt reports long history of auditory command hallucinations, still controlled. Nightmares no longer bothering him. Continue medications as usual. F/U 2 months. He agrees with the plan. Assessment & Plan (06/10/2022 9:20 AM EST): Pt reports long history of auditory command hallucinations, still controlled. Nightmares no longer bothering him. Continue medications as usual.. F/U 6-8 weeks. He agrees with the plan. Assessment & Plan (04/15/2022 11:08 AM EST): Pt reports long history of auditory command hallucinations, still controlled. Nightmares increasing. Will increase to Risperidone 1 mg plus 0.25 mgat bedtime. Continue other medications. F/U 6-8 weeks. He agrees with the plan. 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 Trigger finger of both hands 02/19/2017 Alcohol dependence 02/03/2017 Assessment & Plan (10/15/2024 4:41 PM EDT): Counseling done [facility] referral done Anemia 02/03/2017 Assessment & Plan (06/30/2023 10:17 AM EDT): CBC and iron panels ordered today Chronic back pain 02/03/2017 Gastroesophageal reflux disease 02/03/2017 Mild intermittent asthma 02/03/2017 Assessment & Plan (08/15/2022 11:28 AM EDT): Patient educated to avoid asthma triggers Continue with current interventions Peptic ulcer 02/03/2017 Seasonal allergic rhinitis 02/03/2017 Mood disorder 02/03/2017 Assessment & Plan (08/15/2022 11:27 AM EDT): Continue to follow with therapist and psychiatrist Resolved Problems Problem Noted Date Diagnosed Date Resolved Date 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 [address] [place] [phone] Patti Moreno MD 03/15/2025 Travel 02/04/[address] [facility] [address] [place] [address] [phone] Patti Moreno MD PRICE RECALL 01/18/2025 10:20 AM EDT Office Visit [facility] [address] [address] Geovanni Benitez MD Viral URI (Primary Dx); Sore throat 01/18/2025 Travel 01/09/[address] [facility] [address] [place] [phone] Enedina James ANP Iron deficiency; Dyspepsia; Mild intermittent asthma with acute exacerbation 01/09/[address] [facility] [address] [place] [address] [phone] Patti Moreno MD Dyspepsia 01/08/[address] [facility] [address] [place] [address] Ion Hahn MD Mild intermittent asthma with acute exacerbation 12/29/[address] [facility] [address] [place] [address] Ion Hahn MD 12/28/[address] [facility] [address] [place] [address] Patti Moreno MD PT1 Submitted from Last 3 Months Immunizations Immunization Administration Dates Next Due Hep B, adult 03/26/2021,10/06/2013,09/01/2013 Influenza injectable quadriv alent IIV4 with preservative 01/07/2018,03/05/2016 Influenza injectable quadriv alent preservative free 02/14/2023,01/17/2022,02/27/2021,03/19,02/03/2017,12/30/2014 Influenza, IIV3, injectable 02/25/2014, 0 Influenza, Split (incl. raffaele fied surface antigen) 01/01/2013,12/16/2011 Pneumococcal Conjugate PCV 20 10/15/2024 Pneumococcal Polysaccharide PPSV23 11/28/1998 TD (adult), 2 Lf tetanus tox oid, preservative free, adsorbed 12/16/2011,09/11/2011,11/28/1998 Td (adult), 5 Lf tetanus tox oid, preservative free, adsorbed 09/03/2014 Tdap 12/10/2024,06/01/2013 Social History Tobacco Use Types Packs/Day Years [...] not to disclose 2021 10:14 AM EDT Last Filed Vital Signs Vital Sign Reading Time Taken Comments Blood Pressure 147/85 03/15/2025 10:30 AM EST Pulse 77 03/15/2025 10:30 AM EST Temperature 36.4 C (97.6 F) 03/15/2025 10:30 AM EST Respiratory Rate 18 03/15/2025 10:30 AM EST Oxygen Saturation 98% 01/18/2025 10:15 AM EDT Inhaled Oxygen Concentration - - Weight 69.9 kg (154 lb 3.2 oz) 03/15/2025 10:30 AM EST Height 162.6 cm (5' 4 ) 03/15/2025 10:30 AM EST Body Mass Index 26.47 03/15/2025 10:30 AM EST Plan of Treatment Upcoming Encounters Date Type Department Care Team (Late st Contact Info) Description 04/21/2025 10:45 AM EST Office Visit [facility] [address] [place] [address] Patti Moreno MD [address] [place] [address] 07/06/2025 9:00 AM EDT Office Visit [facility] OPTOMETRY [address] [place] [address] Charmaine Clark, OD [address] [place] [address] Health Maintenance Due Date Last Done Comments CT Colonography 1960 FIT DNA/Cologuard 1960 FIT 1960 FOBT 1960 Sigmoidoscopy 1960 Zoster Vaccines (1 of 2) 12/24/1979 RSV Patients and Patients Aged 60 years or older (1 - Risk 50-74 years 1-dose series) 2010 Colonoscopy 03/16/2021 03/16/2018 Colorectal Cancer Screening 03/16/2021 COVID-19 Vaccine ( season) 2024 01/17/2022, 10/02/2021, 09/08/2020, Additional history exists Alcohol/Substance Use Screening 10/15/2025 10/15/2024 Disability Screening 10/15/2025 10/15/2024 SDOH Screening 10/15/2025 10/15/2024 Diabetes: Hemoglobin A1C 10/25/2025 10/25/2024 Depression Screening 12/10/2025 12/10/2024, 10/16/19 25 Tobacco Screening 03/15/2026 03/15/2025 Lipid Panel 10/25/2029 10/25/2024, 0308/2023, 03/07/2023 DTaP/Tdap/Td Vaccines (4 - Td or Tdap) 12/10/2034 12/10/2024, 09/03/2014, 06/01/2013, Additional history exists Hepatitis B Vaccines Completed 03/26/2021, 10/06/2013, 09/01/2013 Pneumococcal Vaccine: 50+ Years Completed 10/15/2024, 11/28/1998 HIV Screening Completed 10/25/2024, 06/30/2023 Hepatitis C Screening Completed 10/25/2024 , 06/30/2023, 05/22/2020 Influenza Vaccine Completed 01/18/2025, , 01/17/2022, Additional history exists HIB Vaccines Aged Out No longer eligi ble based on patient's age to complete this topic HPV Vaccines Aged Out No longer eligi ble based on patient's age to complete this topic Hepatitis A Vaccines Aged Out No long er eligible based on patient's age to complete this topic IPV Vaccines Aged Out No longer eligi ble based on patient's age to complete this topic Meningococcal B Vaccine Aged Out No l onger eligible based on patient's age to complete this topic Meningococcal Vaccine Aged Out No rex glenroy eligible based on patient's age to complete this topic RSV under 20 months Aged Out No longe r eligible based on patient's age to complete this topic Rotavirus Vaccines Aged Out No longer eligible based on patient's age to complete this topic Procedures Procedure Name Priority Date/Time Associated Diagnosis Comments HIGH SENSITIVITY TROPONIN I Routine 03/15/2025 2:[address] HEAD WO CONTRAST Routine 03/15/2025 2 :[address] CERVICAL SPINE WO CONTRAST Routine 03/15/2025 2:00 PM EST HIGH SENSITIVITY TROPONIN I Routine 03/15/2025 1:18 PM EST COMPREHENSIVE METABOLIC PANEL Routine 03/15/2025 1:18 PM EST APTT Routine 03/15/2025 1:18 PM EST PROTHROMBIN TIME-INR Routine 03/15/2025 1:18 PM EST CBC WITH AUTO DIFFERENTIAL Routine 03/15/2025 1:18 PM EST POCT INFLUENZA B Routine 01/18/2025 10:3 3 AM EDT Sore throat POCT INFLUENZA A Routine 01/18/2025 10:2 8 AM EDT Sore throat POC MARQUIS ID NOW STREP A Routine 01/18/2025 10:24 AM EDT Sore throat POCT RAPID COVID ANTIGEN Routine 01/18/2025 10:22 AM EDT Sore throat HEPATITIS C AB W/REFL TO HCV RNA, QN, PCR Routine 10/25/2024 11:17 AM EDT Rheumatoid arthritis involving multiple sites with positive rheumatoid factor (CMS/HCC) HIV 1/2 ANTIGEN/ANTIBODY, FOURTH GENERATION W/RFL Routine 10/25/2024 11:17 AM EDT Rheumatoid arthritis involving multiple sites with positive rheumatoid factor (CMS/HCC) HEMOGLOBIN A1C Routine 10/25/2024 11:17 AM EDT Rheumatoid arthritis involving multiple sites with positive rheumatoid factor (CMS/HCC) LIPID PANEL, STANDARD Routine 10/25/2024 11:17 AM EDT Rheumatoid arthritis involving multiple sites with positive rheumatoid factor (CMS/HCC) HM COLONOSCOPY Routine 03/16/2018 from Last 3 Months or Most Recently Relevant to Health Maintenance Results * High Sensitivity Troponin I (03/15/2025 2:56 PM EST) Only the most recent of2 resultswithin the time period is included. TROPONIN I HIGH SENSITIVITY <2.7 <3.5 - 35.0 ng/L [facility] Comment:The [facility]quis high sens itivity Troponin-I results should beused in conjunction with other diagnostic information suchas ECG, clinical observations and information, and patientsymptoms to aid in the diagnosis of CA. 03/15/2025 2:56 PM EST 03/15/2025 2:58 PM EST us Generic External Data Provider LAB BLOOD ORDERAB LES Final Result [facility] [address] [place] [phone] * CT Cervical Spine w/o Contrast (03/15/2025 2:00 PM EST) Anatomical Region Laterality Modality Spine, C-spine Computed Tomogra phy 03/15/2025 2:00 PM EST Narrative 03/15/2025 2:28 PM EST [address] [address] [address] Scan Report Signed Patient: Aries Billings MR#: [id number] 38 : 1960 Acct:[id number] Age/Sex: 64 / M ADM Date: 03/15/25 Loc: HO.ED Attending Dr: Ordering Physician: Morgan Mccracken Date of Service: 03/15/25 Procedure(s): CT cervical spine wo IV con Accession Number(s): [id number] cc: Morgan Mccracken; Patti Moreno MD Report Number: [id number]: Total DLP = 374.52 mGy-cm Reason for Exam: pain EXAMINATION: CT CERVICAL SPINE WITHOUT CONTRAST CLINICAL INFORMATION: Pain. Headache.? Fall. COMPARISON: 09/03/2014. TECHNIQUE: Spiral CT imaging of the cervical spine performed in axial plane without contrast. Multiplanar reformatted images were constructed from the axial data set. This CT examination was performed using dose optimization techniques as appropriate, variously including the following: *Automated exposure control *Adjustment of mA and/or kV according to patient size (this includes techniques or standardized protocols for targeted exams where dose is matched to indication/reason for exam; i.e. extremities or head) *Use of iterative reconstruction technique FINDINGS: CORONAL ALIGNMENT: -There is a minimal levoconvex scoliosis, apex at C3. SAGITTAL ALIGNMENT: -Minimal straightening of the normal lordosis. No subluxations. C1-C2 AND CRANIOCERVICAL JUNCTION: -Intact and normally aligned. Very mild degenerative changes of the anterior atlantoaxial joint. VERTEBRAL BODIES AND FACETS: -There is no fracture, compression deformity, or traumatic subluxation. No suspicious bone lesion. -There is normal facet alignment bilaterally with mild multilevel degenerative hypertrophic facet change. This appears most significant at C4-5 on the left. -Mild to moderate multilevel uncinate spurring spanning C3-C7. DISCS: -Moderate disc degeneration is present spanning C3-C7, with mildly irregular endplate changes and sclerosis. There is sparing of the C2-3 and C7-T1 discs. CENTRAL CANAL: -No evidence of high-grade central canal narrowing or large disc herniation allowing for modality limitations. PREVERTEBRAL AND PARAVERTEBRAL SOFT TISSUES: -There is no prevertebral or paravertebral soft tissue swelling or edema. No abnormal fluid collection. -No mass or abnormal lymphadenopathy within the neck. The thyroid gland appears normal. LUNG APICES: -Minor scarring although clear bilaterally. No pneumothorax. CT/CT cervical spine wo IV con IMPRESSION: 1. No CT evidence of acute cervical spine fracture or injury. 2. Mild to moderate degenerative spondylosis of the cervical spine. Electronically signed by: Alex Velasquez MD 03/15/2025 02:25 PM [facility] Dictated By: Alex Velasquez MD Signed By: <Electronically signed by Alex Velasquez MD in OV> 03/15/25 1425 DD/ 1400 TD/TT: 03/15/25 1418 Airline Lounge Receptionist: Procedure Note Donotuseinterpreter, Image - 03/15/[address] [place] [id number] [address] Scan Report Signed Patient: Aries BillingsMR#: [id number] 38 : 1960cct:[id number] Age/Sex: 64 / MADM Date: 03/15/25 Loc: HO.ED Attending Dr: Ordering Physician: Morgan Mccracken Date of Service: 03/15/25 Procedure(s): CT cervical spine wo IV con Accession Number(s): [id number] cc: Morgan Mccracken; Patti Moreno MD Report Number: [id number]: Total DLP = 374.52 mGy-cm Reason for Exam: pain EXAMINATION: CT CERVICAL SPINE WITHOUT CONTRAST CLINICAL INFORMATION: Pain. Headache.? Fall. COMPARISON: 09/03/2014. TECHNIQUE: Spiral CT imaging of the cervical spine performed in axial plane without contrast. Multiplanar reformatted images were constructed from the axial data set. This CT examination was performed using dose optimization techniques as appropriate, variously including the following: *Automated exposure control *Adjustment of mA and/or kV according to patient size (this includes techniques or standardized protocols for targeted exams where dose is matched to indication/reason for exam; i.e. extremities or head) *Use of iterative reconstruction technique FINDINGS: CORONAL ALIGNMENT: -There is a minimal levoconvex scoliosis, apex at C3. SAGITTAL ALIGNMENT: -Minimal straightening of the normal lordosis. No subluxations. C1-C2 AND CRANIOCERVICAL JUNCTION: -Intact and normally aligned. Very mild degenerative changes of the anterior atlantoaxial joint. VERTEBRAL BODIES AND FACETS: -There is no fracture, compression deformity, or traumatic subluxation. No suspicious bone lesion. -There is normal facet alignment bilaterally with mild multilevel degenerative hypertrophic facet change. This appears most significant at C4-5 on the left. -Mild to moderate multilevel uncinate spurring spanning C3-C7. DISCS: -Moderate disc degeneration is present spanning C3-C7, with mildly irregular endplate changes and sclerosis. There is sparing of the C2-3 and C7-T1 discs. CENTRAL CANAL: -No evidence of high-grade central canal narrowing or large disc herniation allowing for modality limitations. PREVERTEBRAL AND PARAVERTEBRAL SOFT TISSUES: -There is no prevertebral or paravertebral soft tissue swelling or edema. No abnormal fluid collection. -No mass or abnormal lymphadenopathy within the neck. The thyroid gland appears normal. LUNG APICES: -Minor scarring although clear bilaterally. No pneumothorax. CT/CT cervical spine wo IV con IMPRESSION: 1. No CT evidence of acute cervical spine fracture or injury. 2. Mild to moderate degenerative spondylosis of the cervical spine. Electronically signed by: Alex Velasquez MD 03/15/2025 02:25 PM [facility] Dictated By: Alex Velasquez MD Signed By: <Electronically signed by Alex Velasquez MD in OV> 03/15/25 1425 DD/ 1400 TD/TT: 03/15/25 1418 Airline Lounge Receptionist: [facility] External Provider IMG CT PROCEDURES Final Result * CT Head w/o Contrast (03/15/2025 2:00 PM EST) Anatomical Region Laterality Modality Head, Neck Computed Tomogra phy 03/15/2025 2:00 PM EST Narrative 03/15/2025 2:31 PM EST [address] [address] [address] Scan Report Signed Patient: Aries Billings MR#: [id number] [birth year] : 1960 Acct:[id number] Age/Sex: 64 / M ADM Date: 03/15/25 Loc: HO.ED Attending Dr: Ordering Physician: Morgan Mccracken Date of Service: 03/15/25 Procedure(s): CT head/brain wo IV con Accession Number(s): [id number] cc: Morgan Mccracken; Patti Moreno MD Report Number: [id number]: Total DLP = 696.87 mGy-cm Reason for Exam: headache EXAMINATION: CT HEAD WITHOUT IV CONTRAST HISTORY: headache. TECHNIQUE: Unenhanced helical CT of the head was performed per standard departmental protocol. Coronal and sagittal reformats of the head were also evaluated. One or more of the following techniques was used for dose reduction: Automated exposure control, adjustment of the mA and/or kV according to patient size, use of iterative reconstruction technique. DLP: 697 mGy-cm COMPARISON: Previous head CT August 2014 FINDINGS: BRAIN: The brain parenchyma is unremarkable. There is normal mitchell/white differentiation. The ventricular system is normal in size and configuration. There is no mass effect or midline shift. No intra- or extra-axial fluid collections are identified. SINUSES: Membranous soft tissue thickening in the bilateral maxillary sinuses. Nasal septum is deviated to the left.. The mastoid air cells and middle ear cavities are well pneumatized. ORBITS: The visualized orbits are unremarkable. BONES/SOFT TISSUES: The extracranial soft tissues are unremarkable. The calvarium is intact. No suspicious lytic or sclerotic lesions. CT/CT head/brain wo IV con IMPRESSION: No acute intracranial abnormality. Membranous soft tissue thickening in the bilateral maxillary sinuses. Electronically signed by: Neris Farmer MD 03/15/2025 02:29 PM EST Dictated By: Neris Farmer MD Signed By: <Electronically signed by Neris Farmer MD in OV> 03/15/25 1429 DD/ 1400 TD/TT: 03/15/25 1419 Airline Lounge Receptionist: PAMELA Procedure Note Donotuseinterpreter, Image - 03/15/[address] [place] [id number] [address] Scan Report Signed Patient: Daniela Billings#: [id number] 38 : [id number]:[id number] Age/Sex: 64 / MADM Date: 03/15/25 Loc: HO.ED Attending Dr: Ordering Physician: Morgan Mccracken Date of Service: 03/15/25 Procedure(s): CT head/brain wo IV con Accession Number(s): [id number] cc: Morgan Mccracken; Patti Moreno MD Report Number: [id number]: Total DLP = 696.87 mGy-cm Reason for Exam: headache EXAMINATION: CT HEAD WITHOUT IV CONTRAST HISTORY: headache. TECHNIQUE: Unenhanced helical CT of the head was performed per standard departmental protocol. Coronal and sagittal reformats of the head were also evaluated. One or more of the following techniques was used for dose reduction: Automated exposure control, adjustment of the mA and/or kV according to patient size, use of iterative reconstruction technique. DLP: 697 mGy-cm COMPARISON: Previous head CT August 2014 FINDINGS: BRAIN: The brain parenchyma is unremarkable. There is normal mitchell/white differentiation. The ventricular system is normal in size and configuration. There is no mass effect or midline shift. No intra- or extra-axial fluid collections are identified. SINUSES: Membranous soft tissue thickening in the bilateral maxillary sinuses. Nasal septum is deviated to the left.. The mastoid air cells and middle ear cavities are well pneumatized. ORBITS: The visualized orbits are unremarkable. BONES/SOFT TISSUES: The extracranial soft tissues are unremarkable. The calvarium is intact. No suspicious lytic or sclerotic lesions. CT/CT head/brain wo IV con IMPRESSION: No acute intracranial abnormality. Membranous soft tissue thickening in the bilateral maxillary sinuses. Electronically signed by: Neris Farmer MD 03/15/2025 02:29 PM EST Dictated By: Neris Farmer MD Signed By: <Electronically signed by Neris Farmer MD in OV> 03/15/25 1429 DD/ 1400 TD/TT: 03/15/25 1419 Airline Lounge Receptionist: PAMELA [facility] External Provider IMG CT PROCEDURES Final Result * (ABNORMAL) CBC auto differential (03/15/2025 1:18 PM EST) White Blood Count 7.4 4.8 - 10.8 X10*3/uL [facility] Red Blood Count 3.79(L) 4.60 - 5.80 X10*6/uL [facility] Hemoglobin 11.8(L) 14.0 - 18.0 g/dl [facility] Hematocrit 35.3(L) 42.0 - 52.0 % [facility] Mean Corpuscular Volume 93.1 80.0 - 98.0 fL [facility] Mean Corpuscular Hemoglobin 31.1 27.0 - 33.0 pg [facility] Mean Corpuscular HGB Conc 33.4 31.0 - 36.0 g/dl [facility] Red Cell Distribution Width 13.1 11.0 - 16.0 % [facility] Platelet Count 323 160 - 400 X10*3/uL [facility] Mean Platelet Volume 10.3 9.4 - 12.4 fL [facility] Neutrophils Percent Auto 56.0 45 - 73 % [facility] Imm Gran Pct Auto 0.3 0.0 - 0.4 % [facility] Lymphocytes Percent Auto 32.1 20 - 40 % [facility] Monocytes Percent Auto 8.2 2 - 11 % [facility] Eosinophils Percent Auto 2.7 0 - 4 % [facility] Basophils Percent Auto 0.7 0 - 2 % [facility] NRBC Pct Auto 0.0 0.0 - 0.2 /100WBC [facility] Neutrophils Absolute Auto 4.2 2.0 - 8.3 x10*3/uL [facility] Imm Gran Abs Auto 0.02 0.00 - 0.03 X10*3/uL [facility] Lymphocytes Absolute Auto 2.4 1.2 - 4.9 X10*3/uL [facility] Monocytes Absolute Auto 0.6 0.1 - 1.2 X10*3/uL [facility] Eosinophils Absolute Auto 0.2 0.0 - 0.4 X10*3/uL [facility] Basophils Absolute Auto 0.1 0.0 - 0.2 X10*3/uL [facility] NRBC Abs Auto 0.000 0.0 - 0.012 X10*3/uL [facility] 03/15/2025 1:18 PM EST 03/15/2025 1:27 PM EST us Generic External Data Provider LAB BLOOD ORDERAB LES Final Result Performing Organization Address [facility]/ZIP Co de Phone Number [facility] [address] [place] [phone] * Partial Thromboplastin Time, Activated (APTT) (03/15/2025 1:18 PM EST) Partial Thromboplastin Time 28.1 26.7 - 34.1 SEC [facility] 03/15/2025 1:18 PM EST 03/15/2025 1:27 PM EST us Generic External Data Provider LAB BLOOD ORDERAB LES Final Result [facility] [address] [place] [address] [phone] * Prothrombin Time-INR (03/15/2025 1:18 PM EST) Prothrombin Time 11.2 11.2 - 13.5 SEC [facility] INTERNATIONAL NORM RATIO 0.9 0.9 - 1.1 [facility] Comment:INTERNATIONAL NORMAL IZED RATIO (INR) REFERENCE RANGES Reference RangeFor patients not on anticoagulant therapy: 0.9 - 1.1INR ranges for oral anticoagulanttherapy:For prevention and treatment of venous thrombosis and pulmonary embolism: 2.0 - 3.0For acute myocardial infarction with aspirin therapy: 2.0 - 3.0For acute myocardial infarction without aspirin therapy: 3.0 - 4.0For patients with mechanical prosthetic heart valves: 2.5 - 3.5 03/15/2025 1:18 PM EST 03/15/2025 1:27 PM EST Generic External Data Provider LAB BLOOD ORDERAB LES Final Result [facility] [address] [place] [phone] * (ABNORMAL) Comprehensive Metabolic Panel (03/15/2025 1:18 PM EST) [facility] Sodium 137 135 - 145 mmol/L [facility] Potassium 4.5 3.3 - 5.1 mmol/L [facility] Chloride 106 96 - 108 mmol/L [facility] Carbon Dioxide 27 22 - 29 mmol/L [facility] Anion Gap 9(L) 12 - 20 [facility] Urea Nitrogen (BUN) 20(H) 9 - 16 mg/dL [facility] Creatinine, Serum 1.19 0.5 - 1.4 mg/dL [facility] Creatinine Clr Calc Pharmacy 52.5 [facility] Comment:eGFR (calculated fro m the MDRD study equation) and eCrCl(calculated from the Cockcroft-Gault equation) are based ondifferent parameters and may not yield comparable results.If eCrCl result is absurd, please check patient'sheight/weight. Estimated Glomerular Filt Rate >60 [facility] Comment:Chronic Kidney Disea se: Estimated GFR < 60 mL/min/1.66q7Lnyzol Kidney Disease: Estimated GFR < 15 mL/min/1.73m2 Glucose 110 60 - 115 mg/dL [facility] Calcium 9.6 8.4 - 10.2 mg/dL [facility] Bilirubin, Total 0.2 0.0 - 1.0 mg/dL [facility] Aspartate Amino Transferase 36 5 - 37 U/L [facility] Alanine Aminotransferase 26 0 - 40 U/L [facility] Total Protein 8.1(H) 6.5 - 8.0 g/dL [facility] Albumin Level 4.3 3.5 - 5.0 g/dL [facility] Alkaline Phosphatase 139(H) 39 - 117 U/L [facility] 03/15/2025 1:18 PM EST 03/15/2025 1:27 PM EST us Generic External Data Provider LAB BLOOD ORDERAB LES Final Result Performing Organization Address City/State/[facility] Co de Phone Number [facility] [address] [place] [phone] * POCT Rapid Influenza B OSOM (01/18/2025 10:33 AM EDT) Rapid Influenza B Ag Negative Negative, Indeterminate QC Media Lot # [id number] Lot# Expiration Date Swab 01/18/2025 10:3 3 AM EDT us Geovanni Espinoza MD POINT OF CARE TEST EN TER/EDIT ORDERABLES Final Result * POCT Rapid Influenza A OSOM (01/18/2025 10:28 AM EDT) Rapid Influenza A Ag Negative Negative, Indeterminate QC Media Lot # [id number] Lot# Expiration Date Swab Nasopharyngeal structure / Unknown 01/18/2025 10:28 AM EDT Geovanni Espinoza MD POINT OF CARE TEST EN TER/EDIT ORDERABLES Final Result * POCT Rapid Strep A MARQUIS ID NOW (01/18/2025 10:24 AM EDT) Pathologist [facility] Rapid Strep A Screen Negative Negative, None Detected QC Media Lot # [id number] Lot# Expiration Date Swab 01/18/2025 10:2 4 AM EDT Geovanni Espinoza MD POINT OF CARE TEST EN TER/EDIT ORDERABLES Final Result * POCT Rapid Covid-19 BinaxNOW (01/18/2025 10:22 AM EDT) [facility] Rapid COVID Ag Negative QC Media Lot # [id number] Lot# Expiration Date Swab 01/18/2025 10:2 2 AM EDT Geovanni Espinoza MD POINT OF CARE TEST EN TER/EDIT ORDERABLES Final Result * Hepatitis C Antibody with Reflex to HCV, RNA, Quantitative, Real-Time PCR (10/25/2024 11:17 AM EDT) Pathologist [facility] Hepatitis C Antibody Nonreactive Nonreactive [facility] Comment:Antibodies to HCV no t detected; does not exclude early acuteHCV infection. Blood Venous blood specimen / Unknown 10/25/2024 11:17 AM EDT 10/25/2024 12:56 PM EDT Patti Ritter MD LAB BLOOD ORDERABLES Final Result [facility] [address] [place] [phone] * HIV-1/2 Antigen and Antibodies, Fourth Generation, with Reflexes (10/25/2024 11:17 AM EDT) HIV AB/AG Nonreactive Nonreactive [facility] Comment:HIV-1 p24 Ag and/or HIV-1/HIV-2 Ab not detected.A test result that is nonreactive does not exclude thepossibility of exposure to or infection with HIV-1 and/orHIV-2. Nonreactive results in this assay for individualswith prior exposure to HIV-1 and/or HIV-2 may be due toantigen and antibody levels that are below the limit ofdetection of this assay.The [employer] HIV Ag/Ab Combo assay result andsupplemental assay results should be interpreted inconjunction with the patient's clinical presentation,history and other laboratory results. If the results areinconsistent with clinical evidence, additional testing issuggested to confirm the result. Blood Venous blood specimen / Unknown 10/25/2024 11:17 AM EDT 10/25/2024 12:56 PM EDT us Patti Ritter MD LAB BLOOD ORDERABLES Final Result [facility] [address] [place] [phone] * (ABNORMAL) Hemoglobin A1c (10/25/2024 11:17 AM EDT) Hemoglobin A1c 6.1(H) <6.0 % [facility] Comment:Hemoglobin A1C Refer ence Range Adults: 4.8 - 6.0 % Non diabetic: < 6.0 % Goal: < 7.0 %Additional Action Suggested: > 8.0 %Note: Hemoglobin A1c results are invalid for patients with abnormal amounts of HbF. Blood transfusions may impact the HbA1c concentration in the patient sample. Estimated Average Glucose 128 mg/dL [facility] Comment:eAG = Estimated ave rage glucose which is %A1C expressed asaverage glucose, using the formula of the R9G-KwdoyniMwbsmex Glucose study (ADAG), Diabetes Care, Vol.31,#8,Nov. 2007 Blood Venous blood specimen / Unknown 10/25/2024 11:17 AM EDT 10/25/2024 12:58 PM EDT us Patti Ritter MD LAB BLOOD ORDERABLES Final Result Performing Organization Address City/[facility]/ZIP Co de Phone Number [facility] [address] [place] [phone] [phone] * (ABNORMAL) Lipid Panel, Standard (10/25/2024 11:17 AM EDT) Triglycerides 276(H) <150 mg/dL [facility] Comment:Desirable Triglyceri de: less than 150 mg/dLBorderline High Triglyceride 150-199 mg/dLHigh Triglyceride: 200-499 mg/dLVery High Triglyceride: greater than or equal to 5OO mg/dL Cholesterol 219(H) <200 mg/dL [facility] Comment:Desirable Cholestero l: less than 200 mg/dLBorderline High Cholesterol: 200-239 mg/dLHigh Cholesterol: greater than 239 mg/dL LDL Cholesterol Calculated 128(H) <100 mg/dL [facility] Comment:Desirable LDL: less than 100 mg/dLNear Optimal/Above Optimal LDL: 110- 129 mg/dLBorderline High LDL: 130-159 mg/dLHigh LDL: 160-189 mg/dLVery High LDL: greater than or equal to 190 mg/dL HDL Cholesterol 36(L) >40 mg/dL [facility] Comment:Desirable HDL: great er than 40 mg/dL Note: This HDL assay may give artificially low results in patients with liver disease. Blood Venous blood specimen / Unknown 10/25/2024 11:17 AM EDT 10/25/2024 12:56 PM EDT us Patti Ritter MD LAB BLOOD ORDERABLES Final Result [facility] [address] [place] [phone] * Hm Colonoscopy (03/16/2018) us Historical Provider HEALTH MAINTENANCE Final Result from Last 3 Months or Most Recently Relevant to Health Maintenance Insurance [facility] C3 Care Teams Shredder Tender Relationship Specialty Start Date End Date Patti Moreno MD [address] [place] [phone] PCP - General Family Medicine 12/25/17 Shonna Bautista RN [address] [place] [phone] Needle Process Felt Goods SupervisorHot Tar Roofer Helper 10/29/23
--- OUTSIDE RECORDS SUMMARY | 2025-03-15 23:00 | XMS_ITS | Encounter Summary ---
Author Organization [employer] Address [address] [place] [address] Care Team Providers Care Film Editor Supervisor Name Role Phone Patti Moreno MD Primary Care Provide r Shonna Bautista RN Unavailable [phone] Encounter Details Date Type Department Care Team (Latest Contact Info) Description 03/15/2025 Travel Social History Tobacco Use Types Packs/Day Years [...] Description 04/21/2025 10:45 AM EST Office Visit [facility] MEDICINE [address] [place] [address] Patti Moreno MD [address] [place] [address] 07/06/2025 9:00 AM EDT Office Visit [facility] OPTOMETRY [address] [place] [address] Eduardo, Charmaine, OD [address] [place] [address] documented as of this encounter Visit Diagnoses Not on filedocumented in this encounter Additional Health Concerns Assessment Noted Time PHQ-9 Depression Total Score: 7 10/16/19 25 10:35 AM EDT documented as of this encounter Care Teams Film Editor Supervisor Relationship Specialty Start Date End Date Patti Morneo MD [address] [place] [address] PCP - General Family Medicine 12/25/17 Shonna Bautista RN [address] [place] [phone] Head PackagerVp Cardiovascular 10/29/23 documented as of this encounter
--- OUTSIDE RECORDS SUMMARY | 2025-03-15 23:00 | XMS_ITS | Encounter Summary ---
Author Organization [employer] Address [address] [place] [address] 7[address] [place] [address] Care Team Providers Care C Java Developer Name Role Phone Patti Moreno MD Primary Care Provide r Shonna Bautista RN Unavailable [phone] Reason for Visit * Reason Comments Med Refill Encounter Details Date Type Department Care Team ([facility] st Contact Info) Description 03/27/2023 Refill [facility] MEDICINE [address] [place], [place] [phone] Mark Hendricks FNP Psychosis, unspecified psychosis type (CMS/HCC) Social History Tobacco Use Types Packs/Day Years Used Date Smoking Tobacco: Never Passive Smoke Exposure: Never Smokeless Tobacco: Never Depression Answer Date Recorded Patient Health Questionnaire-9 Score 1 08/05/2022 Housing Stability Answer Date Recorded What is your housing situation today? I do not have housing (Staying with others, in a hotel, in a chcf, living outside on the street, on a beach, in a car, or in a park 01/11/[address] you li ve. Do you have problems with any of the following? Pests such as bugs, ants, or mice 01/11/2023 Food Insecurity Answer Date Recorded Within the past 12 months, y ou worried that your food would run out before you got money to buy more: Never True 01/20/2023 Within the past 12 months,th e food you bought just didn't last and you didn't have enough money to get more: Never True Transportation Answer Date Recorded In the past 12 months, has l ack of transportation kept you from medical appts, meetings, work or from getting things needed for daily living? Yes, it has kept me from medical appointments or getting medications. 01/11/2023 Utilities Answer Date Recorded In the past 12 months, has t he electric, gas, oil or water company threatened to shut off services in your home? No 01/20/2023 Depression Answer Date Recorded Patient Health Questionnaire-2 [...] Description 04/21/2025 10:45 AM EST Office Visit [facility] MEDICINE [address] [place] [address] Patti Moreno MD [address] [place] [address] 07/06/2025 9:00 AM EDT Office Visit [facility] OPTOMETRY [address] [place] [address] Eduardo, Charmaine, OD [address] [place] [address] documented as of this encounter Visit Diagnoses Diagnosis Psychosis, unspecified psychosis type (CMS/HCC) (HCC) documented in this encounter Additional Health Concerns Assessment Noted Time PHQ-9 Depression Total Score: 1 08/06/19 23 9:19 AM EDT documented as of this encounter Care Teams C Java Developer Relationship Specialty Start Date End Date Patti Moreno MD [address] [place] [address] PCP - General Family Medicine 12/25/17 Shonna Bautista RN [address] [place] [phone] Physical BiochemistErisa Attorney 10/29/23 documented as of this encounter
--- OUTSIDE RECORDS SUMMARY | 2025-03-15 23:00 | XMS_ITS | Encounter Summary ---
Author Organization [employer] [facility] Address [address] [place] [address] 7[address] [place] [address] Care Team Providers Care Ordnance Engineering Technician Name Role Phone Patti Moreno MD Primary Care Provide r Shonna Bautista RN Unavailable [phone] Reason for Visit * Reason Comments Med Refill Encounter Details Date Type Department Care Team (Late st Contact Info) Description 01/02/2023 Refill [facility] MEDICINE [address] [place] [address] [phone] Patti Moreno MD [address] [place] [address] [phone] Dyspepsia Social History Tobacco Use Types Packs/Day [...] Description 04/21/2025 10:45 AM EST Office Visit [facility] MEDICINE [address] [place] [address] [phone] Patti Moreno MD [address] [place] [address] [phone] 07/06/2025 9:00 AM EDT Office Visit [facility] OPTOMETRY [address] [place] [address] Charmaine Clark, OD [address] [place] [address] documented as of this encounter Visit Diagnoses Diagnosis Dyspepsia Dyspepsia and other specified disorders of function of stomach documented in this encounter Additional Health Concerns Assessment Noted Time PHQ-9 Depression Total Score: 1 08/06/19 23 9:19 AM EDT documented as of this encounter Care Teams Ordnance Engineering Technician Relationship Specialty Start Date End Date Patti Moreno MD [address] [place] [address] PCP - General Family Medicine 12/25/17 Shonna Bautista RN [address] [place] [phone] Manager RecruitmentScroll Assembler 10/29/23 documented as of this encounter
--- OUTSIDE RECORDS SUMMARY | 2025-03-15 23:00 | XMS_ITS | Encounter Summary ---
Author Organization [employer] Address [address] [place] [address] Care Team Providers Care Field Service Rep Name Role Phone Patti Moreno MD Primary Care Provide r Shonna Bautista RN Unavailable Encounter Details Date Type Department Care Team (Late st Contact Info) Description 03/15/2025 Orders Only GENERIC EXTERNAL DATA DEPARTMENT Provider, Generic External Data Social History Tobacco Use Types Packs/Day Years [...] is your housing situation today? I have wisamkaterina siddiqi 10/15/[address] you [...] Description 04/21/2025 10:45 AM EST Office Visit [facility] MEDICINE [address] [place] [address] Patti Moreno MD [address] [place] [address] 07/06/2025 9:00 AM EDT Office Visit [facility] OPTOMETRY [address] [place] [address] Charmaine Clark, OD [address] [place] [address] documented as of this encounter Procedures Procedure Name Priority Date/Time Associated Diagnosis Comments HIGH SENSITIVITY TROPONIN I Routine 03/15/2025 2:[address] CERVICAL SPINE WO CONTRAST Routine 03/15/2025 2:[address] HEAD WO CONTRAST Routine 03/15/2025 2 :00 PM EST HIGH SENSITIVITY TROPONIN I Routine 03/15/2025 1:18 PM EST CBC WITH AUTO DIFFERENTIAL Routine 03/15/2025 1:18 PM EST APTT Routine 03/15/2025 1:18 PM EST PROTHROMBIN TIME-INR Routine 03/15/2025 1:18 PM EST COMPREHENSIVE METABOLIC PANEL Routine 03/15/2025 1:18 PM EST documented in this encounter Results * High Sensitivity Troponin I (03/15/2025 2:56 PM EST) [facility] TROPONIN I HIGH SENSITIVITY <2.7 <3.5 - 35.0 ng/L [facility] Comment:The Juan high sens itivity Troponin-I results should beused in conjunction with other diagnostic information suchas ECG, clinical observations and information, and patientsymptoms to aid in the diagnosis of UT. 03/15/2025 2:56 PM EST 03/15/2025 2:58 PM EST us Generic External Data Provider LAB BLOOD ORDERAB LES Final Result Performing Organization Address City/State/[facility] Co de Phone Number [facility] [address] [place] [address] [phone] * CT Head w/o Contrast (03/15/2025 2:00 PM EST) Anatomical Region Laterality Modality Head, Neck Computed Tomogra phy 03/15/2025 2:00 PM EST Narrative 03/15/2025 2:31 PM EST [address] [address] [address] Scan Report Signed Patient: Aries Billings MR#: [id number] 38 : 1960 Acct:[id number] Age/Sex: 64 / M ADM Date: 03/15/25 Loc: HO.ED Attending Dr: Ordering Physician: Morgan Mccracken Date of Service: 03/15/25 Procedure(s): CT head/brain wo IV con Accession Number(s): [id number] cc: Morgan Mccracken; Patti Moreno MD Report Number: [id number]: Total DLP = 696.87 mGy-cm Reason for [...] by: Neris Farmer MD 03/15/2025 02:29 PM [facility] Dictated By: Neris Farmer MD Signed By: <Electronically signed by Neris Farmer MD in OV> 03/15/25 1429 DD/ 1400 TD/TT: 03/15/25 1419 Rn Ambulatory: [facility] Procedure Note Donotuseinterpreter, Image - 03/15/[address] [address] [address] Scan Report Signed Patient: Aries Billings#: [id number] [birth year] : 1960cct:[id number] Age/Sex: 64 / MADM Date: 03/15/25 Loc: HO.ED Attending Dr: Ordering Physician: Morgan Mccracken Date of Service: 03/15/25 Procedure(s): CT head/brain wo IV con Accession Number(s): [id number] cc: Morgan Mccracken; Patti Moreno MD Report Number: [id number]: Total DLP = 696.87 mGy-cm Reason for [...] by: Neris Farmer MD 03/15/2025 02:29 PM [facility] Dictated By: Neris Farmer MD Signed By: <Electronically signed by Neris Farmer MD in OV> 03/15/25 1429 DD/ 1400 TD/TT: 03/15/25 1419 Rn Ambulatory: [facility] External Provider IM CT PROCEDURES Final Result * CT Cervical Spine w/o Contrast (03/15/2025 2:00 PM EST) Anatomical Region Laterality Modality Spine, C-spine Computed Tomogra phy 03/15/2025 2:00 PM EST Narrative 03/15/2025 2:28 PM EST [address] [address] [address] Scan Report Signed Patient: Aries Billings MR#: [id number] [birth year] : 1960 Acct:[id number] Age/Sex: 64 / M ADM Date: 03/15/25 Loc: HO.ED Attending Dr: Ordering Physician: Morgan Mccracken Date of Service: 03/15/25 Procedure(s): CT cervical spine wo IV con Accession Number(s): [id number] cc: Morgan Mccracken; Patti Moreno MD Report Number: [id number]: Total DLP = 374.52 mGy-cm Reason for [...] by: Alex Velasquez MD 03/15/2025 02:25 PM [facility] Dictated By: Alex Velasquez MD Signed By: <Electronically signed by Alex Velasquez MD in OV> 03/15/25 1425 DD/ 1400 TD/TT: 03/15/25 1418 Rn Ambulatory: Procedure Note Donotuseinterpreter, Image - 03/15/[address] [place] [address] [address] Scan Report Signed Patient: Aries BillingsMR#: [id number] [birth year] : 1960cct:[id number] Age/Sex: 64 / MADM Date: 03/15/25 Loc: HO.ED Attending Dr: Ordering Physician: Morgan Mccracken Date of Service: 03/15/25 Procedure(s): CT cervical spine wo IV con Accession Number(s): [id number] cc: Morgan Mccracken; Patti Moreno MD Report Number: [id number]: Total DLP = 374.52 mGy-cm Reason for [...] by: Alex Velasquez MD 03/15/2025 02:25 PM EST Dictated By: Alex Velasquez MD Signed By: <Electronically signed by Alex Velasquez MD in OV> 03/15/25 1425 DD/ 1400 TD/TT: 03/15/25 1418 Rn Ambulatory: [facility] External Provider IMG CT PROCEDURES Final Result * High Sensitivity Troponin I (03/15/2025 1:18 PM EST) TROPONIN I HIGH SENSITIVITY <2.7 <3.5 - 35.0 ng/L [facility] Comment:The Juan high sens itivity Troponin-I results should beused in conjunction with other diagnostic information suchas ECG, clinical observations and information, and patientsymptoms to aid in the diagnosis of UT. 03/15/2025 1:18 PM EST 03/15/2025 1:27 PM EST us Generic External Data Provider LAB BLOOD ORDERAB LES Final Result [facility] [address] [place] [address] [phone] * (ABNORMAL) Comprehensive Metabolic Panel (03/15/2025 1:18 PM EST) Sodium 137 135 - 145 mmol/L [facility] Potassium 4.5 3.3 - 5.1 mmol/L [facility] Chloride 106 96 - 108 mmol/L [facility] Carbon Dioxide 27 22 - 29 mmol/L [facility] Anion Gap 9(L) 12 - 20 [facility] Urea Nitrogen (BUN) 20(H) 9 - 16 mg/dL [facility] Creatinine, Serum 1.19 0.5 - 1.4 mg/dL [facility] Creatinine Clr Calc Pharmacy 52.5 [facility] Comment:eGFR (calculated fro m the MDRD study equation) and eCrCl(calculated from the Cockcroft-Gault equation) are based ondifferent parameters and may not yield comparable results.If eCrCl result is absurd, please check patient'sheight/weight. Estimated Glomerular Filt Rate >60 [facility] Comment:Chronic Kidney Disea se: Estimated GFR < 60 mL/min/1.18t9Rweydu Kidney Disease: Estimated GFR < 15 mL/min/1.73m2 Glucose 110 60 - 115 mg/dL [facility] Calcium 9.6 8.4 - 10.2 mg/dL [facility] Bilirubin, Total 0.2 0.0 - 1.0 mg/dL [facility] Aspartate Amino Transferase 36 5 - 37 U/L [facility] Alanine Aminotransferase 26 0 - 40 U/L [facility] Total Protein 8.1(H) 6.5 - 8.0 g/dL [facility] Albumin Level 4.3 3.5 - 5.0 g/dL [facility] Alkaline Phosphatase 139(H) 39 - 117 U/L [facility] 03/15/2025 1:18 PM EST 03/15/2025 1:27 PM EST Generic External Data Provider LAB BLOOD ORDERAB LES Final Result Performing Organization Address [facility] Co de Phone Number [facility] [address] [place] [phone] * Partial Thromboplastin Time, Activated (APTT) (03/15/2025 1:18 PM EST) Partial Thromboplastin Time 28.1 26.7 - 34.1 SEC [facility] 03/15/2025 1:18 PM EST 03/15/2025 1:27 PM EST Generic External Data Provider LAB BLOOD ORDERAB LES Final Result Performing Organization Address [facility] Phone Number [facility] [address] [place] [phone] * Prothrombin Time-INR (03/15/2025 1:18 PM EST) Prothrombin Time 11.2 11.2 - 13.5 SEC [facility] INTERNATIONAL NORM RATIO 0.9 0.9 - 1.1 [facility] Comment:INTERNATIONAL NORMAL IZED RATIO (INR) REFERENCE [...] Provider LAB BLOOD ORDERAB LES Final Result [facility] [address] [place] [address] [phone] * (ABNORMAL) CBC auto differential (03/15/2025 1:18 PM EST) White Blood Count 7.4 4.8 - 10.8 X10*3/uL [facility] Red Blood Count 3.79(L) 4.60 - 5.80 X10*6/uL [facility] Hemoglobin 11.8(L) 14.0 - 18.0 g/dl [facility] Hematocrit 35.3(L) 42.0 - 52.0 % [facility] Mean Corpuscular Volume 93.1 80.0 - 98.0 fL [facility] Mean Corpuscular Hemoglobin 31.1 27.0 - 33.0 pg [facility] Mean Corpuscular HGB Conc 33.4 31.0 - 36.0 g/dl [facility] Red Cell Distribution Width 13.1 11.0 - 16.0 % [facility] Platelet Count 323 160 - 400 X10*3/uL [facility] Mean Platelet Volume 10.3 9.4 - 12.4 fL [facility] Neutrophils Percent Auto 56.0 45 - 73 % [facility] Imm Gran Pct Auto 0.3 0.0 - 0.4 % [facility] Lymphocytes Percent Auto 32.1 20 - 40 % [facility] Monocytes Percent Auto 8.2 2 - 11 % [facility] Eosinophils Percent Auto 2.7 0 - 4 % [facility] Basophils Percent Auto 0.7 0 - 2 % [facility] NRBC Pct Auto 0.0 0.0 - 0.2 /100WBC [facility] Neutrophils Absolute Auto 4.2 2.0 - 8.3 x10*3/uL [facility] Imm Gran Abs Auto 0.02 0.00 - 0.03 X10*3/uL [facility] Lymphocytes Absolute Auto 2.4 1.2 - 4.9 X10*3/uL [facility] Monocytes Absolute Auto 0.6 0.1 - 1.2 X10*3/uL [facility] Eosinophils Absolute Auto 0.2 0.0 - 0.4 X10*3/uL [facility] Basophils Absolute Auto 0.1 0.0 - 0.2 X10*3/uL [facility] NRBC Abs Auto 0.000 0.0 - 0.012 X10*3/uL [facility] 03/15/2025 1:18 PM EST 03/15/2025 1:27 PM EST us Generic External Data Provider LAB BLOOD ORDERAB LES Final Result Performing Organization Address City/State/[facility] Co de Phone Number [facility] [address] [place] [address] [phone] documented in this encounter Visit Diagnoses Not on filedocumented in this encounter Additional Health Concerns Assessment Noted Time PHQ-9 Depression Total Score: 7 10/16/19 25 10:35 AM EDT documented as of this encounter Care Teams Field Service Rep Relationship Specialty Start Date End Date Patti Moreno MD [address] [place] [address] PCP - General Family Medicine 12/25/17 Shonna Bautista RN [address] [place] [address] [employer] 10/29/23 documented as of this encounter
== END 2025-03-15 17:25 | disposition home or self-care (01) ==
PROVIDERS: Physician Assistant; Emergency Provider Student in an Organized Health Care Education/Training Program; PCP Internal Medicine
DX: M54.12 Radiculopathy, cervical region (principal); M54.2 Cervicalgia; R51.9 Headache, unspecified
CPT/HCPCS: 36415; 70450; 72125; 80053; 84484; 85025; 85610; 85730; 93005; 99283; 99284

== ENCOUNTER → 2025-03-15 13:07 | Outpatient (BNV) | payer MEDICAID, SELFPAY | PROVIDERS: Emergency Provider Student in an Organized Health Care Education/Training Program; PCP Internal Medicine; Visit Provider Internal Medicine Cardiovascular Disease | DX: M54.2 Cervicalgia (principal) | CPT/HCPCS: 93010 ==

== ENCOUNTER → 2025-03-15 13:07 | Outpatient (BNV) | payer MEDICAID, SELFPAY | PROVIDERS: PCP Internal Medicine; Visit Provider Radiology Diagnostic Radiology | DX: M47.812 Spondylosis without myelopathy or radiculopathy, cervical region (principal); J34.89 Other specified disorders of nose and nasal sinuses | CPT/HCPCS: 70450; 72125 ==